=== PATIENT | female | born 1990 | race Caucasian/White ===

== ENCOUNTER 2021-05-11 10:00 | Outpatient (REF) | payer OTHER, SELFPAY ==
[2021-05-11 10:12] LABS: MANUAL DIFF FLAG NO
[2021-05-11 10:39] LABS: Basophils Percent Auto 0.4 % (0-2); Eosinophils Absolute Auto 0.1 X10*3/uL (0.0-0.4); Eosinophils Percent Auto 1.2 % (0-4); Hematocrit 30.4 % (37.0-47.0); Hemoglobin 8.6 g/dl (12.0-16.0); Imm Gran Abs Auto 0.01 X10*3/uL (0.00-0.03); Imm Gran Pct Auto 0.2 % (0.0-0.4); Lymphocytes Absolute Auto 2.1 X10*3/uL (1.2-4.9); Lymphocytes Percent Auto 41.8 % (20-40); Mean Corpuscular HGB Conc 28.3 g/dl (31.0-35.0); Mean Corpuscular Hemoglobin 19.2 pg (27.0-33.0); Mean Platelet Volume 9.7 fL (9.4-12.3); Monocytes Absolute Auto 0.4 X10*3/uL (0.1-1.2); Monocytes Percent Auto 7.8 % (2-11); Neutrophils Absolute Auto 2.4 x10*3/uL (2.0-8.3); Neutrophils Percent Auto 48.6 % (45-73); Platelet Count 290 X10*3/uL (160-400); Red Blood Count 4.47 X10*6/uL (4.20-5.50); Red Cell Distribution Width 18.6 % (11.0-16.0)
[2021-05-11 11:58] LABS: Alanine Aminotransferase 11 U/L (0-31); Albumin Level 3.8 g/dL (3.5-5.0); Alkaline Phosphatase 59 U/L (39-117); Anion Gap 11 (12-20); Aspartate Amino Transferase 13 U/L (5-31); Bilirubin Total 0.5 mg/dL (0.0-1.0); Blood Urea Nitrogen 14 mg/dL (9-16); Calcium 9.4 mg/dL (8.4-10.2); Carbon Dioxide 28 mmol/L (22-29); Chloride 106 mmol/L (96-108); Cholesterol 175 mg/dL; Estimated Glomerular Filt Rate > 60; Glucose Fasting 93 mg/dL (60-99); HDL Cholesterol 43 mg/dL; LDL Cholesterol Calculated 114 mg/dl; Potassium 4.4 mmol/L (3.3-5.1); Sodium 141 mmol/L (135-145); Total Protein 7.2 g/dL (6.5-8.0); Triglycerides 92 mg/dL
[2021-05-11 12:09] LABS: Thyroid Stimulating Hormone 2.11 uIU/mL (0.32-4.0)
== END 2021-05-11 10:01 | disposition home or self-care (01) ==
LOC: HO.LAB 10:00
PROVIDERS: PCP Internal Medicine; Visit Provider Internal Medicine
DX: Z00.00 Encounter for general adult medical examination without abnormal findings (principal); E03.9 Hypothyroidism, unspecified; E11.9 Type 2 diabetes mellitus without complications
CPT/HCPCS: 36415; 80053; 80061; 84443; 85025

== ENCOUNTER → 2021-05-29 13:20 | Outpatient (BNV) | payer OTHER, SELFPAY | PROVIDERS: PCP Internal Medicine; Referring Provider Internal Medicine; Visit Provider Internal Medicine | DX: D50.9 Iron deficiency anemia, unspecified (principal) | CPT/HCPCS: 99203; 99213; 99214 ==

== ENCOUNTER 2021-06-17 08:03 | Outpatient (REF) | payer OTHER, SELFPAY | END 2021-06-17 08:04 | disposition home or self-care (01) | LOC: HO.MDS 08:03 | PROVIDERS: PCP Internal Medicine; Visit Provider Internal Medicine | DX: D50.9 Iron deficiency anemia, unspecified (principal) | CPT/HCPCS: 96365; 96366; J1200; J1750; Q0163 ==

== ENCOUNTER 2021-06-28 10:54 | Outpatient (REF) | payer OTHER, MEDICAID, SELFPAY ==
[2021-06-28 17:22] LABS: CT PCR NOT DETECTED (Not Detect.); NG PCR NOT DETECTED (Not Detect.)
[2021-06-29 13:07] LABS: BV Int Neg Control Negative (Negative); BV Int Pos Control Positive (Positive)
[2021-07-04 04:28] LABS: HPV mRNA E6/E7 rflx Not Detected (Not Detected)
== END 2021-06-28 10:55 | disposition home or self-care (01) ==
LOC: HO.LAB 10:54
PROVIDERS: PCP Internal Medicine; Visit Provider Advanced Practice Midwife
DX: Z01.419 Encounter for gynecological examination (general) (routine) without abnormal findings (principal); Z11.51 Encounter for screening for human papillomavirus (HPV); Z20.2 Contact with and (suspected) exposure to infections with a predominantly sexual mode of transmission
CPT/HCPCS: 87480; 87491; 87510; 87591; 87624; 87660; 88142

== ENCOUNTER 2022-03-22 11:42 | Outpatient (REF) | payer OTHER, MEDICAID, SELFPAY ==
--- NOTE | ~2022-03-22 | XR_ITS ---
EXAMINATION: XR LUMBOSACRAL SPINE CLINICAL INFORMATION: Dorsalgia. COMPARISON: None TECHNIQUE: Three views of the lumbosacral spine. FINDINGS: The alignment, vertebral body and disc height is maintained. Small endplate osteophyte is seen at the superior margin of L4. No evidence of spondylolysis or spondylolisthesis. The sacroiliac joints are unremarkable. XR/XR lumbar spine 2-3V IMPRESSION: Normal alignment. No evidence of spondylolysis or spondylolisthesis. Small endplate osteophyte is seen at the superior margin of L4.
[2022-03-22 14:02] LABS: MANUAL DIFF FLAG NO
[2022-03-22 14:05] LABS: Basophils Percent Auto 0.4 % (0-2); Eosinophils Absolute Auto 0.1 X10*3/uL (0.0-0.4); Eosinophils Percent Auto 2.1 % (0-4); Hematocrit 37.5 % (37.0-47.0); Hemoglobin 12.3 g/dl (12.0-16.0); Imm Gran Abs Auto 0.01 X10*3/uL (0.00-0.03); Imm Gran Pct Auto 0.2 % (0.0-0.4); Lymphocytes Absolute Auto 2.1 X10*3/uL (1.2-4.9); Lymphocytes Percent Auto 42.8 % (20-40); Mean Corpuscular HGB Conc 32.8 g/dl (31.0-35.0); Mean Corpuscular Hemoglobin 26.1 pg (27.0-33.0); Mean Corpuscular Volume 79.4 fL (80.0-98.0); Mean Platelet Volume 10.5 fL (9.4-12.3); Monocytes Absolute Auto 0.5 X10*3/uL (0.1-1.2); Monocytes Percent Auto 9.5 % (2-11); Neutrophils Absolute Auto 2.2 x10*3/uL (2.0-8.3); Platelet Count 262 X10*3/uL (160-400); Red Blood Count 4.72 X10*6/uL (4.20-5.50); Red Cell Distribution Width 13.2 % (11.0-16.0); White Blood Count 4.9 X10*3/uL (4.8-10.8)
[2022-03-22 14:15] LABS: Iron 43 mcg/dL (30-160); Percent Iron Saturation 17 % (15-50); Total Iron Binding Capacity 251 mcg/dL (228-428); Unsaturated Iron Binding 208 ug/dL
== END 2022-03-22 11:43 | disposition home or self-care (01) ==
LOC: HO.HMGCX 11:42
PROVIDERS: PCP Internal Medicine; Visit Provider Internal Medicine
DX: E61.1 Iron deficiency (principal); M54.9 Dorsalgia, unspecified
CPT/HCPCS: 36415; 72100; 83540; 85025

== ENCOUNTER → 2023-02-02 15:02 | Outpatient (BNVA) | payer OTHER, SELFPAY | PROVIDERS: PCP Internal Medicine; Visit Provider Physician Assistant Surgical ==

== ENCOUNTER 2024-03-24 08:43 | Outpatient (AMB) | payer OTHER, SELFPAY ==
[2024-03-24 08:47] VITALS: BP 122/78; BMI 39.8
--- NOTE | 2024-03-24 08:47 | A.OFFVIS_ITS ---
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 Family Development Extension Specialist Required: No Family Development Extension Specialist Services: Family Development Extension Specialist Present Information Interpreted: clinical only Fine Wire Drawer: Fine Wire Drawer Present Allergies latex Allergy (Verified 03/24/24 08:48) Rash acetaminophen [From Tylenol] Adverse Reaction (Mild, Unverified 03/24/24 08:48) Nausea Medication List - Last Reconciled 03/24/24 by Agustina Bolaños CNM No Known Home Meds Is last menstrual period known: Yes Last menstrual period: 03/22/24 HPI HPI CIRCUIT WALKER 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 She has a history of PCOS in very heavy irregular periods she has a history the bleeding being so heavy that in the past some years ago she needed a D&C she also became so anemic a few years ago that she needed iron transfusions. She should be on iron but it makes her constipated so she does not take it. She does try to eat well though she does not eat a lot of need though she does eat chicken in beans. She is open to and has not been contraceptive thing she has a 10-year-old child she did not need reproductive assistance to get for that child but she would like to have another baby. However at this time her periods are so heavy and crampy and painful and difficult that she would like to deal with the heavy periods 1st she is feeling somewhat washed out today and she thinks that she probably is anemic enough to need some assistance with that as well. She thinks her primary care appointment is coming up in a couple of months. She has not had blood work in a little while her last CBC was not in the anemic range but in the past she has been very anemic. At this point she would like to deal with the heavy bleeding as a priority rather than pursue a . She has lots of cancers in her mother's side of the family with grandmothers and they are sisters and other relatives but no close members with breast cancer.. She is aware of the relationship between weight loss and dealing with the fert ility issues related to PCOS. [facility] Medical History Obesity Iron deficiency anemia Surgical History H/O rhinoplasty History of delivery Family History Mother Hypertension History of hysterectomy Father Diabetes Maternal Grandmother Bone marrow disease Maternal Aunt Thyroid cancer Social History Household Members: Spouse, Family and Children Housing: Condominium Are you a primary care mgr to a significant other at home: No Do you presently have visiting nurse or other home services: No Alcohol intake: current Alcohol intake frequency: holidays/special occasions only Patient Tobacco Use Status: Never used Tobacco e-Cigarette/Vaping Use: Never Used Second Hand Smoke Exposure: No service: No Current occupational status: employed Gender identity: Female Cognitive needs: No Hearing needs: No Vision needs: No Female Reproductive History Menstrual Age of Menarche: 11 Duration of menses: 8-10 days Date of last menstrual period: 03/22/24 control method: none Total pregnancies: 1 Full term: 1 Date of last pap smear: 07/02/21 (neg.2018,WNL) History of abnormal pap smear: No Physical Exam Vital Signs: Last Vital Signs BP 122/78 03/24/24 08:47 BMI result Body Mass Index 39.8 Const General: healthy appearing, comfortable, no acute distress, well developed and alert Nutritional Appearance: average body habitus Orientation/consciousness: patient oriented x3 Limitations: no limitations HEENT Head: Yes normocephalic Neck Neck: Yes normal visual inspection Chest Chest palpation & inspection: normal inspection of the chest Breast/axilla inspection: normal inspection of the breasts and normal inspection of the axillae Breast/axilla palpation: normal palpation of the breasts and normal palpation of the axillae Resp Effort & Inspection: normal respiratory effort GI Inspection: Yes normal to inspection, No Abdominal wall edema and No distended Palpation (GI): Soft to palpation and nontender Other: Patient has very heavy menses today she is on day 3 of her menses she has a history of very heavy irregular periods secondary to PCOS. Cervix nulliparous pink smooth with heavy bleeding uterus anteverted nontender does not feel appreciably enlarged adnexa nontender good tone with Kegel General: Yes bladder normal to palpation External Female Exam: normal external appearance and normal appearance of the urethra Speculum Exam - Vagina: normal appearance of the vagina, normal palpation and normal vaginal discharge Speculum Exam - Cervix: normal appearance of the cervix, normal palpation and nontender Bimanual exam- vagina & uterus: normal bimanual exam, normal palpation, uterine size normal, bladder normal to palpation, consistency normal, normal palpation, uterine mobility normal, uterine shape normal, No Cervical tenderness present, non-tender and no cervical motion tenderness Bimanual Exam- Adnexa, other: normal adnexae, no masses, normal and No adnexal tenderness Neuro General: patient oriented x3 Results Reviewed Results Reviewed: Name: Tamanna Simmons Age/Sex: 31/F Attending: Agustina Bolaños CNM : 1990 Submitted by: Agustina Bolaños CNM Copies to: Elliot Simeon MD MR #: [id number] Status: DEP REF Collected: 06/28/21 Location: .LAB Received: 07/02/21 Interpretation Satisfactory for evaluation. Negative for intraepithelial lesion or malignancy. HPV mRNA E6/E7: NOT DETECTED This assay detects E6/E7 viral messenger RNA (mRNA) from 14 high-risk HPV types (16, 18, 31, 33, 35, 39, 45, 51, 52, 56, 58, 59, 66, 68) HPV testing performed by [facility], [place], [place]. See reference laboratory portion of the EMR for entire report. Clinical Information LMP: 05/28/21 Previous PAP test: 2018, WNL Material Received ThinPrep Cervical Copies To Elliot Simeon MD [address] [place] [address] [address] [place] [address] Agustina Bolaños CNM [address] [place] [address] [address] [place] [address] Electronically Signed By: SONU Keita ([facility]) 07/09/21 0844 The Pap Test is a screening procedure with the inherent possibility of both false negative and false positive results. Results should be interpreted in the context of historic and current clinical findings. Reliability of the Pap Test is enhanced by performing the test on a regular repetitive basis. Patient: Tamanna Simmons Age/Sex: 31/F MR#: [id number] Page 1 of 1 Assessment & Plan Assessment & Plan (1) Iron deficiency anemia: Comment: Has needed iron transfusions in past, CBC being checked today, and Hematology referral being placed, anticipating that she is anemic. Code(s): D50.9 - Iron deficiency anemia, unspecified Category: Medical (2) Obesity: Code(s): E66.9 - Obesity, unspecified Category: Medical (3) Well woman exam with routine gynecological exam: Code(s): Z01.419 - Encounter for gynecological examination (general) (routine) without abnormal findings Category: Medical (4) Cervical cancer screening: Comment: 06/28/21 pap= neg, neg hpv Code(s): Z12.4 - Encounter for screening for malignant neoplasm of cervix Category: Medical (5) Potential exposure to STD: Code(s): Z20.2 - Contact with and (suspected) exposure to infections with a predominantly sexual mode of transmission Category: Medical (6) PCOS (polycystic ovarian syndrome): Comment: Long standing history together with irregular heavy menses, see note, workup i nitiated and management discussed Code(s): E28.2 - Polycystic ovarian syndrome Category: Medical (7) Menorrhagia, premenopausal: Code(s): N92.4 - Excessive bleeding in the premenopausal period Category: Medical (8) Abnormal uterine bleeding (AUB): Comment: Labs and ultrasound ordered planning probable endometrial biopsy and possible Mirena Code(s): N93.9 - Abnormal uterine and vaginal bleeding, unspecified Category: Medical (9) History of irregular menstrual bleeding: Code(s): Z87.42 - Personal history of other diseases of the female genital tract Category: Medical Plan 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 She has a history of PCOS in very heavy irregular periods she has a history the bleeding being so heavy that in the past some years ago she needed a D&C she also became so anemic a few years ago that she needed iron transfusions. She should be on iron but it makes her constipated so she does not take it. She does try to eat well though she does not eat a lot of need though she does eat chicken in beans. She is open to and has not been contraceptive thing she has a 10-year-old child she did not need reproductive assistance to get for that child but she would like to have another baby. However at this time her periods are so heavy and crampy and painful and difficult that she would like to deal with the heavy periods 1st she is feeling somewhat washed out today and she thinks that she probably is anemic enough to need some assistance with that as well. She thinks her primary care appointment is coming up in a couple of months. She has not had blood work in a little while her last CBC was not in the anemic range but in the past she has been very anemic. At this point she would like to deal with the heavy bleeding as a priority rather than pursue a . Discussed all of the above she is well aware of the issues involved with PCOS she would need all of her fasting blood work via her primary care provider but since I am going to be drawing some labs I added fasting glucose and thyroid level and CBC she appears pale to this practitioners eyes and her bleeding is heavy and I would not be surprised if she were anemic enough to require some intervention such as iron transfusions so I am also placing her referral to Hematology.. For the heavy bleeding I am ordering a pelvic ultrasound as well as the CBC and TSH. We will plan on possibly an endometrial biopsy if necessary after the ultrasound is done and I have already discussed the possible use of a Mirena help to help control the bleeding. She has been sexually active and I have asked her to refrain from unprotected intercourse from now or on so that a non diagnosed would not coexist along with the evaluation process. The patient agrees with the plan and did not have any further questions she feels at this point the bleeding is so heavy and crampy in her periods are lasting so long sometimes 10 days sometimes longer in the longest she has had is 2-3 weeks that she would rather deal with bleeding issues rather than pursue a at this particular moment in time discussed that decisions about getting the bleeding patterns under control involve hormonal treatments. She had a ParaGard IUD in the past before the with her 10-year-old child and it was very painful to her so she has been somewhat reluctant to consider an IUD which was discussed in the past. However I did explain that it is 1 of the preferred ways of managing the dysfunctional bleeding pattern especially when anemic conditions are present. Also discussed that it really should not be painful unless it is not sitting in the best position discussed that the insertion procedure is a blind procedure so trying again a Mirena IU S maybe a worthwhile proposition. Alternative direction of management was discussed including referring to reproductive endocrinology but she wants to do with the heavy bleeding 1st. Discussed that this might present an opportunity to work on weight loss and getting healthier while we address the heavy bleeding and then in the future she could pursue her other goals with reproduction. Orders: Orders Complete Blood Count no Diff Today N93.9 - Abnormal uterine and vaginal bleeding, unspecified Bacterial Vaginosis Panel Today N89.8 - Other specified noninflammatory disorders of vagina TSH reflex Free T4 Today N93.9 - Abnormal uterine and vaginal bleeding, unspecified Glucose Fasting Today D50.9 - Iron deficiency anemia, unspecified, E28.2 - Polycystic ovarian syndrome, E66.9 - Obesity, unspecified, N92.4 - Excessive bleeding in the premenopausal period, N93.9 - Abnormal uterine and vaginal bleeding, unspecified, Z01.419 - Encounter for gynecological examination (general) (routine) without abnormal findings, Z12.4 - Encounter for screening for malignant neoplasm of cervix, Z20.2 - Contact with and (suspected) exposure to infections with a predominantly sexual mode of transmission, Z87.42 - Personal history of other diseases of the female genital tract US pelvic and transvaginal Today D50.9 - Iron deficiency anemia, unspecified, E28.2 - Polycystic ovarian syndrome, E66.9 - Obesity, unspecified, N92.4 - Excessive bleeding in the premenopausal period, N93.9 - Abnormal uterine and vaginal bleeding, unspecified, Z87.42 - Personal history of other diseases of the female genital tract CT NG by PCR Today N89.8 - Other specified noninflammatory disorders of vagina Referrals Hematology & Oncology Referral D50.9 - Iron deficiency anemia, unspecified, N92.4 - Excessive bleeding in the premenopausal period, N93.9 - Abnormal uterine and vaginal bleeding, unspecified, Z87.42 - Personal history of other diseases of the female genital tract Coding Level of Care Code Est Pt Prev Care 18-39y([id number]) Diagnoses Iron deficiency anemia D50.9 Obesity E66.9 Well woman exam with routine gynecological exam Z01.419 Cervical cancer screening Z12.4 Potential exposure to STD Z20.2 PCOS (polycystic ovarian syndrome) E28.2 Menorrhagia, premenopausal N92.4 Abnormal uterine bleeding (AUB) N93.9 History of irregular menstrual bleeding Z87.42
== END 2024-03-24 10:25 | disposition home or self-care (01) ==
LOC: HO.HWSM 08:43
PROVIDERS: PCP Internal Medicine; Visit Provider Advanced Practice Midwife
DX: Z01.419 Encounter for gynecological examination (general) (routine) without abnormal findings (principal); D50.9 Iron deficiency anemia, unspecified; E66.9 Obesity, unspecified; Z20.2 Contact with and (suspected) exposure to infections with a predominantly sexual mode of transmission; E28.2 Polycystic ovarian syndrome; N92.4 Excessive bleeding in the premenopausal period; N93.9 Abnormal uterine and vaginal bleeding, unspecified; Z87.42 Personal history of other diseases of the female genital tract
CPT/HCPCS: 99395; 99459

== ENCOUNTER 2024-03-24 08:43 | Outpatient (REF) | payer OTHER, SELFPAY ==
[2024-03-25 02:27] LABS: CT PCR NOT DETECTED (Not Detect.); NG PCR NOT DETECTED (Not Detect.)
[2024-03-25 08:42] LABS: Bacterial Vaginosis PCR NEGATIVE (Negative); Candida Group PCR NOT DETECTED (Not Detect); Candida glab krusei PCR NOT DETECTED (Not Detect); Trichomonas vaginalis PCR NOT DETECTED (Not Detect)
== END 2024-03-24 08:44 | disposition home or self-care (01) ==
LOC: HO.LAB 08:43
PROVIDERS: PCP Internal Medicine; Visit Provider Advanced Practice Midwife
DX: N89.8 Other specified noninflammatory disorders of vagina (principal)
CPT/HCPCS: 81515; 87491; 87591

== ENCOUNTER 2024-03-26 11:58 | Inpatient (IN) | payer OTHER, SELFPAY ==
[2024-03-26] VITALS (14 sets, daily range): BP systolic 102–128; BP diastolic 55–79; PULSE 70–99; RESP 16–20; TEMP 36.4–37.1; O2SAT 98–100; BMI 39.5
--- NOTE | ~2024-03-26 | US_ITS ---
CLINICAL HISTORY: dyfunctional bleeding, critically anemic, fibroid? US pelvis transabdominal and transvaginal Comparison: None Findings: Transabdominal imaging was performed for overall anatomy. Transvaginal imaging was performed for additional detail. The anteverted uterus measures 8.3 cm in length on transabdominal imaging and 7.9 cm in length on transvaginal imaging. The endometrial stripe measures 5.2 mm in thickness on transvaginal imaging a trace amount fluid within the endometrial canal. Flow present over the endometrium on color Doppler imaging. Right ovary measures 3.0 x 2.9 x 1.7 cm. Left ovary measures 3.3 x 2.2 x 2.6 cm. Flow present at the left ovary on color Doppler imaging. No clear flow demonstrated at the right ovary on the provided sonographic images. Trace free fluid visualized within the pelvis. IMPRESSION: 1. Trace fluid identified within the endometrial canal with areas of endometrial flow on color Doppler imaging.. The flow is nonspecific, but may be seen in the setting of an underlying polyp, mass, or endometrial hyperplasia. No significant endometrial thickening appreciated on this exam. Recommend sonohysterogram examination or contrast-enhanced pelvic MRI for further evaluation. 2. Unremarkable sonographic evaluation of the left ovary. There are limited Doppler images of the right ovary on this examination, and right ovarian torsion is not excluded on this exam. May consider repeat examination with color and spectral Doppler imaging of the ovaries for further evaluation as clinically directed. This document has been electronically signed by: Brodie Lopez MD on 03/26/2024 20:24:47
--- NOTE | 2024-03-26 12:24 | ED.GENADULT ---
HPI - General Adult General Chief complaint: General Medical Stated complaint: abnormal labs Time Seen by Provider: 03/26/24 15:58 Source: patient Limitations: no limitations History of Present Illness ED Provider: Radha Burgos PA-C HPI narrative: 34-year-old female with a history of dysfunctional uterine bleeding, PCOS, obesity, chronic iron deficiency anemia, presents with abnormal labs. Patient is currently seeing a station air traffic control specialist in Dr. Gaona's practice, for dysfunctional uterine bleeding; she has an TVUS and a uterine biopsy pending. Patient was found to be critically anemic with a hemoglobin of 5.9, she was sent in as an expect by Dr. Gaona. Associated weakness, fatigue and shortness of breath with minimal activity. Patient states she essentially we will have a period 3 weeks out of a month, she has a brief reprieve of 5-7 days without bleeding. Patient currently has her period, however the bleeding is not heavy at this time. Related Data Home Medications ?Medication ?Instructions ?Recorded ?Confirmed No Known Home Meds 03/24/24 03/24/24 Allergies Allergy/AdvReac Type Severity Reaction Status Date / Time latex Allergy Rash Verified 03/26/24 12:25 acetaminophen [From Tylenol] AdvReac Mild Nausea Verified 03/26/24 12:25 Review of Systems Review of Systems: Yes all other systems are reviewed and are negative Constitutional: Constitutional: Reports fatigue, Denies fever(s) and Reports lethargy Cardiovascular: Cardiovascular: Denies chest pain and Reports dyspnea on exertion Respiratory: Respiratory: Denies cough and Reports dyspnea on exertion Gastrointestinal: Gastrointestinal: Denies abdominal pain Genitourinary: Genitourinary: Reports menorrhagia Endocrine: Endocrine: Reports fatigue PMFSH Past Medical History Attestation statement: The following information was validated with the patient. Medical History Obesity Iron deficiency anemia Surgical History H/O rhinoplasty History of delivery Family History Family History Mother Hypertension History of hysterectomy Father Diabetes Maternal Grandmother Bone marrow disease Maternal Aunt Thyroid cancer Social History Social History Household Members: Spouse, Family and Children Housing: Condominium Are you a primary home health care respiratory therapist to a significant other at home: No Do you presently have visiting nurse or other home services: No Alcohol intake: current Alcohol intake frequency: holidays/special occasions only Patient Tobacco Use Status: Never used Tobacco Smoked in Last 30 Days: No e-Cigarette/Vaping Use: Never Used Second Hand Smoke Exposure: No Use of substances other than those prescribed or required for medical reasons: No Advance Directives: No Advance Directives Information Provided: No Do you have a plan to hurt others: No Plan Patient : No service: No Current occupational status: employed Gender identity: Female Cognitive needs: No Hearing needs: No Vision needs: No Physical Exam ED Vital Signs: Vital Signs - 24 hr 03/26/24 12:24 03/26/24 16:09 03/26/24 17:12 Temperature 98 F 97.9 F Pulse Rate 70 88 86 Respiratory Rate 19 18 18 Blood Pressure 125/55 L 127/79 109/65 Pulse Oximetry 100 98 98 Oxygen Delivery Method Room Air Room Air Room Air 03/26/24 17:25 03/26/24 17:43 Temperature 98.5 F 98.3 F Pulse Rate 99 81 Respiratory Rate 16 16 Blood Pressure 114/71 111/68 Pulse Oximetry Oxygen Delivery Method BMI result Body Mass Index 39.5 Const Other: Alert, overall well in appearance Orientation/consciousness: patient oriented x3 Resp Other: Nonlabored respiration Cardio Other: Normal peripheral perfusion GI Other: Abdomen is soft, nondistended nontender Other: Scant amount of blood in vaginal canal, no pulsatile bleeding per os. I am visualizing a cylindrical lesion protruding from the cervical os, it appears to be tissue, no CMT no adnexal tenderness Skin Other: Warm dry no rash Neuro General: patient oriented x3, gait normal, no focal motor deficits and CN's II-XI intact bilaterally Psych Other: Calm cooperative Course Course Course Narrative: This is a Rapid Medical Examination (RME) performed by Laurie Retana PA-C in triage. Full HPI, ROS, assessment and treatment plan per primary provider in the Main ED. 34 yo female hx of iron deficiency anemia, PCOS, AUB here for eval of low H&H levels. had blood work this morning, H&H 5.5/22.7. reports feeling tired/ sob at baseline. hx of iron infusions. no hx of blood transfusions. +pale Plan: basic labs, type and screen Reevaluation(s) Reevaluation #1: I message Dr. Gaona, he agrees with the ultrasound, he is asking for a pelvic exam as well as cultures, in chart review I did not realize the patient just had vaginal swabs obtained on the 9th. The patient will be admitted due to her critical anemia, I will reach back out to doctor Candelaria for further consult once the transvaginal ultrasound results. Time: 18:12 Consultations Consultation #1: I message Dr. Gaona, he agrees with the ultrasound, he is asking for a pelvic exam as well as cultures, in chart review I did not realize the patient just had vaginal swabs obtained on the 9th. The patient will be admitted due to her critical anemia, I will reach back out to doctor Candelaria for further consult once the transvaginal ultrasound results. Time: 18:12 Consultation #2: Dr. Gaona assessed the patient in the ED as well and performed a pelvic, he feels the cylindric lesion that I found on the cervix is a polyp, it could be the source of the bleeding. Sounds as if the patient will follow up as an outpatient from a gynecological perspective, she is still being admitted due to her critical anemia Medications Administered Generic Name Dose Route Start Last Admin Trade Name Freq PRN Reason Stop Dose Admin Progesterone 200 mg 03/26/24 21:00 03/26/24 20:41 Progesterone, Micronized 100 Mg Capsule PO 200 mg BEDTIME SHERMAN Administration Medical Decision Making Medical Decision Making MDM Narrative: 34-year-old female with a history of dysfunctional uterine bleeding, PCOS, obesity, chronic iron deficiency anemia, presents with abnormal labs. Patient is currently seeing a station air traffic control specialist in Dr. Gaona's practice, for dysfunctional uterine bleeding; she has an TVUS and a uterine biopsy pending. Patient was found to be critically anemic with a hemoglobin of 5.9, she was sent in as an expect by Dr. Gaona. Associated weakness, fatigue and shortness of breath with minimal activity. Patient states she essentially we will have a period 3 weeks out of a month, she has a brief reprieve of 5-7 days without bleeding. Patient currently has her period, however the bleeding is not heavy at this time. Problem: Dysfunctional uterine bleeding, iron deficiency anemia, PCOS, obesity History: Per patient I have considered the following differential diagnoses: Ectopic, fibroid, endometrial cancer, endometriosis, dyssynchronous endometrium Plan: Patient has begun assessment for her dysfunctional uterine bleeding, she has multiple diagnostic testing pending as an outpatient. Screening labs including type and screen have been ordered, a serum test has not been obtained. We will do so now. I am inclined to order a transvaginal ultrasound, I will reach out to Dr. Gaona as well. I think ectopic is least likely given the patient has been having symptoms for months. I have independently reviewed the following tests: Labs: No leukocytosis, H and H are 5.9 and 22.2 respectively, no electrolyte abnormality, beta hCG less than 2, patient screened negative for GC, chlamydia, trich, BV, Dalia on March 24 2024 Transvaginal ultrasound:IMPRESSION: 1. Trace fluid identified within the endometrial canal with areas of endometrial flow on color Doppler imaging.. The flow is nonspecific, but may be seen in the setting of an underlying polyp, mass, or endometrial hyperplasia. No significant endometrial thickening appreciated on this exam. Recommend sonohysterogram examination or contrast-enhanced pelvic MRI for further evaluation. 2. Unremarkable sonographic evaluation of the left ovary. There are limited Doppler images of the right ovary on this examination, and right ovarian torsion is not excluded on this exam. May consider repeat examination with color and spectral Doppler imaging of the ovaries for further evaluation as clinically directed. This document has been electronically signed by: Brodie Lopez MD on 03/26/2024 20:24:47 Lab Data 03/26/24 12:37 03/26/24 12:37 Labs: Lab Results 03/26/24 Range/Units 12:37 WBC 5.8 (4.8-10.8) X10*3/uL RBC 3.64 L (4.20-5.50) X10*6/uL Hgb 5.9 L* (12.0-16.0) g/dl Hct 22.2 L (37.0-47.0) % MCV 61.0 L (80.0-98.0) fL MCH 16.2 L (27.0-33.0) pg MCHC 26.6 L (31.0-35.0) g/dl RDW 22.4 H (11.0-16.0) % Plt Count 369 (160-400) X10*3/uL MPV 9.1 L (9.4-12.3) fL Immature Gran % (Auto) 0.3 (0.0-0.4) % Neut % (Auto) 50.4 (45-73) % Lymph % (Auto) 41.7 H (20-40) % [place] % (Auto) 5.9 (2-11) % Eos % (Auto) 1.4 (0-4) % Baso % (Auto) 0.3 (0-2) % Lymph # (Auto) 2.4 (1.2-4.9) X10*3/uL [place] # (Auto) 0.3 (0.1-1.2) X10*3/uL Eos # (Auto) 0.1 (0.0-0.4) X10*3/uL Baso # (Auto) 0.0 (0.0-0.2) X10*3/uL Abs Immat Gran (auto) 0.02 (0.00-0.03) X10*3/uL Absolute Neuts (auto) 2.9 (2.0-8.3) x10*3/uL Absolute Nucleated RBC 0.020 H (0.0-0.012) X10*3/uL Nucleated RBC % (auto) 0.3 H (0.0-0.2) /100WBC Sodium 140 (135-145) mmol/L Potassium 3.6 (3.3-5.1) mmol/L Chloride 111 H (96-108) mmol/L Carbon Dioxide 25 (22-29) mmol/L Anion Gap 8 L (12-20) BUN 12 (9-16) mg/dL Creatinine 0.70 (0.5-1.4) mg/dL Estim Creat Clear Calc 130.7 Estimated GFR > 60 Random Glucose 111 (60-115) mg/dL Calcium 8.6 D (8.4-10.2) mg/dL Iron 14 L (30-160) mcg/dL TIBC 310 (228-428) mcg/dL % Saturation 5 L (15-50) % Unsat Iron Binding 296 ug/dL Total Bilirubin 0.3 (0.0-1.0) mg/dL AST 14 (5-31) U/L ALT 9 (0-31) U/L Alkaline Phosphatase 57 (39-117) U/L Total Protein 7.0 (6.5-8.0) g/dL Albumin 3.6 (3.5-5.0) g/dL Beta HCG, Quant < 2 mIU/mL Blood Type B Positive Antibody Screen NEGATIVE Crossmatch See Detail Discharge Plan Discharge Clinical Impression: DUB (dysfunctional uterine bleeding), Iron deficiency anemia Patient Disposition: Admitted As Inpatient
[2024-03-26 12:41] LABS: MANUAL DIFF FLAG NO
[2024-03-26 12:43] LABS: Basophils Percent Auto 0.3 % (0-2); Eosinophils Absolute Auto 0.1 X10*3/uL (0.0-0.4); Eosinophils Percent Auto 1.4 % (0-4); Hematocrit 22.2 % (37.0-47.0); Imm Gran Abs Auto 0.02 X10*3/uL (0.00-0.03); Imm Gran Pct Auto 0.3 % (0.0-0.4); Lymphocytes Absolute Auto 2.4 X10*3/uL (1.2-4.9); Lymphocytes Percent Auto 41.7 % (20-40); Mean Corpuscular HGB Conc 26.6 g/dl (31.0-35.0); Mean Corpuscular Hemoglobin 16.2 pg (27.0-33.0); Mean Platelet Volume 9.1 fL (9.4-12.3); Monocytes Absolute Auto 0.3 X10*3/uL (0.1-1.2); Monocytes Percent Auto 5.9 % (2-11); NRBC Pct Auto 0.3 /100WBC (0.0-0.2); Neutrophils Absolute Auto 2.9 x10*3/uL (2.0-8.3); Neutrophils Percent Auto 50.4 % (45-73); Platelet Count 369 X10*3/uL (160-400); Red Blood Count 3.64 X10*6/uL (4.20-5.50); Red Cell Distribution Width 22.4 % (11.0-16.0); White Blood Count 5.8 X10*3/uL (4.8-10.8)
[2024-03-26 12:48] LABS: Hemoglobin 5.9 g/dl (12.0-16.0)
[2024-03-26 12:58] LABS: Alanine Aminotransferase 9 U/L (0-31); Albumin Level 3.6 g/dL (3.5-5.0); Alkaline Phosphatase 57 U/L (39-117); Anion Gap 8 (12-20); Aspartate Amino Transferase 14 U/L (5-31); Bilirubin Total 0.3 mg/dL (0.0-1.0); Blood Urea Nitrogen 12 mg/dL (9-16); Calcium 8.6 mg/dL (8.4-10.2); Carbon Dioxide 25 mmol/L (22-29); Chloride 111 mmol/L (96-108); Creatinine Clr Calc Pharmacy 130.7; Estimated Glomerular Filt Rate > 60; Glucose Random 111 mg/dL (60-115); Potassium 3.6 mmol/L (3.3-5.1); Sodium 140 mmol/L (135-145)
--- NOTE | 2024-03-26 16:15 | PC.NURSE ---
Pt comes to ED today reporting low Hgb. A&Ox3, VSS, afebrile. Skin is warm and dry Breaths and speech are unlabored Facial symmetry noted. Pt denies n/v, fever, chills Pt reports generally feeling cold but that is a baseline for her. Awaiting orders.
--- NOTE | 2024-03-26 17:36 | PC.NURSE ---
Blood transfusion begins. RN at bedside x15 mins per protocol. Pt tolerating well.
--- NOTE | 2024-03-26 18:21 | PM.IMHP ---
History of Present Illness Date of Service: 03/26/24 Attending physician on admission: Leslie Euceda Chief Complaint: Anemia, menorrhagia Pt is a 34-year-old female with a PMH significant for?PCOS, dysfunctional uterine bleeding, and iron deficiency anemia who presents to the ED after outpatient labs found critical anemia?of 5.8/22.7. Pt had routine [employer] appointment earlier in the week and had outpatient labs drawn earlier this morning. Pt was called by office who told her to come to the ED for transfusion and further workup and evaluation. Pt has a long history of irregular and heavy menses that has required iron transfusions in the past. Pt previously on oral iron supplementation but has not been able to tolerate due to side effects of constipation and abdominal discomfort. Pt reports she normally has 5-10 days of heavy bleeding during each cycle, though reports ?always? has a least a little bleeding daily. Most recent cycle started 7 days ago and ended yesterday. Pt with chronic lightheadedness, dizziness, shortness for breath, and fatigue especially with exertion. Also experiences intermittent heavy cramps and back pain during menses. Reports current symptoms are chronic and at baseline, no worse than prior cycles. In the ED pt's vitals stable and largely WNL. Labs were significant for microcytic anemia of 5.9/22.2 with MCV 61.0, otherwise grossly unremarkable. No leukocytosis. No significant electrolyte abnormalities. Renal function WNL. Hepatic function WNL. In the ED pt was transfused 2 units PRBCs. Pt will be admitted to the hospital for treatment and further evaluation of acute on chronic blood loss anemia secondary to abnormal uterine bleeding requiring blood transfusion. Review of Systems Review of Systems: Negative except for that which is stated in the [facility] Medical History Obesity Iron deficiency anemia Family History Mother Hypertension History of hysterectomy Father Diabetes Maternal Grandmother Bone marrow disease Maternal Aunt Thyroid cancer Surgical History H/O rhinoplasty History of delivery Social History Household Members: Spouse, Family and Children Housing: Condominium Are you a primary care analyst to a significant other at home: No Do you presently have visiting nurse or other home services: No Alcohol intake: current Alcohol intake frequency: holidays/special occasions only Patient Tobacco Use Status: Never used Tobacco Smoked in Last 30 Days: No e-Cigarette/Vaping Use: Never Used Second Hand Smoke Exposure: No Use of substances other than those prescribed or required for medical reasons: No Advance Directives: No Advance Directives Information Provided: No Do you have a plan to hurt others: No Plan Patient : No service: No Current occupational status: employed Gender identity: Female Cognitive needs: No Hearing needs: No Vision needs: No Meds Allergies Allergy/AdvReac Type Severity Reaction Status Date / Time latex Allergy Rash Verified 03/26/24 12:25 acetaminophen [From Tylenol] AdvReac Mild Nausea Verified 03/26/24 12:25 Home Medications ?Medication ?Instructions ?Recorded ?Confirmed ?Last Taken ?Type No Known Home Meds 03/24/24 03/24/24 Unknown History Physical Exam Vital Signs and Narrative: Vital Signs: Last Vital Signs Temp 98.3 F 03/26/24 17:43 Pulse 81 03/26/24 17:43 Resp 16 03/26/24 17:43 BP 111/68 03/26/24 17:43 Pulse Ox 98 03/26/24 17:12 O2 Del Method Room Air 03/26/24 17:12 BMI result Body Mass Index 39.5 General: AOx3, no acute distress Resp: CTA bilaterally CVS: S1, S2, RRR GI: +BS, NT, no distention Skin: Warm, dry Neuro: Cranial nerves II-XII grossly intact bilaterally. Motor grossly intact bilaterally : Pelvic exam deferred to ED provider and [employer] Extremities: No edema Psych: Appropriate affect Results Labs 03/26/24 12:37 03/26/24 12:37 Labs: Laboratory Results - last 24 hr 03/26/24 12:37 MCV 61.0 L MCH 16.2 L MCHC 26.6 L RDW 22.4 H Plt Count 369 MPV 9.1 L Immature Gran % (Auto) 0.3 Neut % (Auto) 50.4 Lymph % (Auto) 41.7 H [place] % (Auto) 5.9 Eos % (Auto) 1.4 Baso % (Auto) 0.3 Lymph # (Auto) 2.4 [place] # (Auto) 0.3 Eos # (Auto) 0.1 Baso # (Auto) 0.0 Abs Immat Gran (auto) 0.02 Absolute Neuts (auto) 2.9 Absolute Nucleated RBC 0.020 H Nucleated RBC % (auto) 0.3 H Anion Gap 8 L Estim Creat Clear Calc 130.7 Estimated GFR > 60 Random Glucose 111 Calcium 8.6 D Total Bilirubin 0.3 AST 14 ALT 9 Alkaline Phosphatase 57 Total Protein 7.0 Albumin 3.6 Blood Type B Positive Antibody Screen NEGATIVE Crossmatch See Detail Assessment and Plan (1) Acute on chronic anemia: Status: Acute (2) Menorrhagia, premenopausal: Status: Acute Plan Pt is a 34-year-old female with a PMH significant for?PCOS, dysfunctional uterine bleeding, and iron deficiency anemia who presents to the ED after outpatient labs found critical anemia?of 5.8/22.7. Pt will be admitted to the hospital for treatment and further evaluation of acute on chronic blood loss anemia secondary to abnormal uterine bleeding requiring blood transfusion. Acute on chronic blood loss anemia Patient's H&H 5.9/22.2 Secondary to abnormal uterine bleeding Pt with long history of AUB requiring iron transfusions in the past Not compliant with home iron supplementation Pt transfused 2 units PRBCs in the ED Transvaginal ultrasound [employer] consult Check iron studies Follow CBC Full Code Attending:?Dr. Noel DVT Prophylaxis: Pneumatic compression due to acute anemia Pt will require a hospitalization of at least two nights for treatment of?acute on chronic blood loss anemia secondary to abnormal uterine bleeding requiring blood transfusion. Pt will require hospital care for additional workup, close monitoring of CBC, and transfusion as warranted. Quality Stroke Does the patient have a stroke diagnosis?: No VTE Prior VTE?: No VTE Risk Level:: Medical - moderate - high VTE Device Contraindication: N/A - Device Ordered VTE Drug Contraindication: Treatment Not Indicated
--- NOTE | 2024-03-26 18:22 | P.CONOB_ITS ---
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 LMP last week since then the patient has been bleeding, the patient changes 3 pads per day according to her, today her bleeding was slowed down markedly. Complaining of fatigue and weakness especially on exertion, no other associated symptoms cc:: CC: OB [facility] Past Medical History Medical History Obesity Iron deficiency anemia Family History Family History Mother Hypertension History of hysterectomy Father Diabetes Maternal Grandmother Bone marrow disease Maternal Aunt Thyroid cancer Surgical History Surgical History H/O rhinoplasty History of delivery Social History Social History Household Members: Spouse, Family and Children [facility] Are you a primary youth career specialist to a significant other at home: No Do you presently have visiting nurse or other home services: No Alcohol intake: current Alcohol intake frequency: holidays/special occasions only Patient Tobacco Use Status: Never used Tobacco Smoked in Last 30 Days: No e-Cigarette/Vaping Use: Never Used Second Hand Smoke Exposure: No Use of substances other than those prescribed or required for medical reasons: No Advance Directives: No Advance Directives Information Provided: No Do you have a plan to hurt others: No Plan Patient : No service: No Current occupational status: employed Gender identity: Female Cognitive needs: No Hearing needs: No Vision needs: No Meds Allergies Allergy/AdvReac Type Severity Reaction Status Date / Time latex Allergy Rash Verified 03/26/24 12:25 acetaminophen [From Tylenol] AdvReac Mild Nausea Verified 03/26/24 12:25 Home Medications ?Medication ?Instructions ?Recorded ?Confirmed ?Last Taken ?Type No Known Home Meds 03/24/24 03/24/24 Unknown History 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 Physical Exam Vitals Vital signs: Temp Pulse Resp BP Pulse Ox O2 Del Method 98.3 F 81 16 111/68 98 Room Air 03/26/24 17:43 03/26/24 17:43 03/26/24 17:43 03/26/24 17:43 03/26/24 17:12 03/26/24 17:12 BMI result Body Mass Index 39.5 Female Genitalia (Pelvic) Vulva: No lesions Vagina: Nontender Cervix: Polyp (endocervical polyp) Uterus: Normal size Adnexa/Parametria: Adnexal Tenderness: None, Adnexal Mass: None, Parametrial Tenderness: None and Parametrial Mass: None Additional Comments: minimal vaginal bleeding 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 - Results Labs 03/26/24 12:37 03/26/24 12:37 Labs: Short CBC 03/26/24 Range/Units 12:37 WBC 5.8 (4.8-10.8) X10*3/uL Hgb 5.9 L* (12.0-16.0) g/dl Hct 22.2 L (37.0-47.0) % Plt Count 369 (160-400) X10*3/uL BMP 03/26/24 12:37 Sodium 140 Potassium 3.6 Chloride 111 H Carbon Dioxide 25 BUN 12 Creatinine 0.70 Calcium 8.6 D Liver Function 03/26/24 Range/Units 12:37 Total Bilirubin 0.3 (0.0-1.0) mg/dL AST 14 (5-31) U/L ALT 9 (0-31) U/L Alkaline Phosphatase 57 (39-117) U/L Albumin 3.6 (3.5-5.0) g/dL Antibody Screen Antibody Screen NEGATIVE 03/26/24 12:37 Assessment and Plan (1) Abnormal uterine bleeding (AUB): Status: Acute GC and chlamydia with BV panel and Trichomonas were done 2 days ago and were negative. Discussed with the patient the different causes of abnormal bleeding including thyroid disorders, uterine and ovarian pathology, endometrial hyperplasia, carcinoma and other potential causes. In addition discussed with the patient the finding on ultrasound showing abnormal endometrium with possible endometrial pathology including endometrial polyp , hyperplasia or malignancy, in addition, explained to the patient the finding on physical exam showing endometrial polyp. Discussed with the patient the work up including endometrial sampling either via office EMB with polypectomy or through a hysteroscopy D&C polypectomy to rule out endometrial pathology including endometrial hyperplasia and/or malignancy or a polyp. All pros and cons, risks and benefits were discussed with the patient, the patient decided proceed with hysteroscopy D&C possible polypectomy/myomectomy. Instructions given the patient to call the office for a close follow-up schedule preop visit. Will start the patient on Prometrium 200 mg p.o. q.d. while the patient is getting transfused with packed RBC then after discharge will follow-up with the patient in the outpatient office soon for hysteroscopy D&C polypectomy with posible levo norgestrel IUD insertion and will discontinue Prometrium afterwards (2) Anemia: Status: Acute The patient is being admitted to the hospitalist service for blood transfusion , will defer the management the hospitalist team (3) Endocervical polyp: Status: Acute Explained to the patient the finding on pelvic exam showing endometrial polyp, recommended outpatient polypectomy with endometrial biopsy or hysteroscopy D&C possible polypectomy. All pros and cons, risks and benefits of each approach were discussed with the patient, the patient decided to proceed with hysteroscopy D&C / polypectomy. Instructions given the patient to schedule an outpatient close follow-up for a preop visit in order to schedule the procedure. All questions answered, the patient verbalized understanding
[2024-03-26 18:50] LABS: HCG Quantitative < 2 mIU/mL
[2024-03-26 19:03] LABS: Iron 14 mcg/dL (30-160); Percent Iron Saturation 5 % (15-50); Total Iron Binding Capacity 310 mcg/dL (228-428); Unsaturated Iron Binding 296 ug/dL
[2024-03-26] MEDS: proGESTerone, Micronized 100 MG CAPSULE 200 MG PO (20:41)
[2024-03-27 02:27] VITALS: BP 104/50; PULSE 78; RESP 14; TEMP 36.6; O2SAT 98
[2024-03-27 06:24] LABS: Hematocrit 27.6 % (37.0-47.0); Hemoglobin 7.9 g/dl (12.0-16.0); Mean Corpuscular HGB Conc 28.6 g/dl (31.0-35.0); Mean Corpuscular Hemoglobin 19.4 pg (27.0-33.0); Mean Corpuscular Volume 67.6 fL (80.0-98.0); Mean Platelet Volume 9.6 fL (9.4-12.3); NRBC Pct Auto 0.3 /100WBC (0.0-0.2); Platelet Count 333 X10*3/uL (160-400); Red Blood Count 4.08 X10*6/uL (4.20-5.50); Red Cell Distribution Width 28.7 % (11.0-16.0); White Blood Count 6.4 X10*3/uL (4.8-10.8)
[2024-03-27 06:44] VITALS: BP 96/57; PULSE 60; RESP 14; TEMP 36.5; O2SAT 99
[2024-03-27] MEDS: 0.9 % Sodium Chloride Flush 3 ML SYRINGE IVFLUSH (08:05)
--- NOTE | 2024-03-27 08:27 | PC.NURSE ---
Assumed care of pt at 0700, alert and oriented. Tolerating PO, OOB ambulating to bathroom. 20g Left AC IV intact and patient.
[2024-03-27] MEDS: Iron Sucrose Complex 200 MG/10 ML VIAL IVPUSH (09:03)
--- NOTE | 2024-03-27 10:53 | PHA.MEDREC ---
Addendum entered by Rosa Elena Combs [facility] 03/27/24 10:54: messaged [facility] rec complete Original Note: Pharmacy Consult ? Medication Reconciliation Pharmacy has completed the medication reconciliation.
[2024-03-27 11:29] VITALS: BP 121/76; PULSE 76; RESP 18; TEMP 37.1; O2SAT 100
--- NOTE | 2024-03-27 11:54 | PM.DS ---
DS: Providers Provider Date of Service: 03/27/24 Date of admission: 03/26/24 18:40 Date of discharge: 03/27/24 Primary care physician: Elliot Simeon MD Consults: 03/26/24 18:40 Consult to Obstetrics / Gynecology Routine Consulting Provider: Ghanshyam Gaona Reason for consultation: Acute anemia, menorrhagia, AUB DS: Diagnosis Discharge Diagnosis (1) Acute on chronic anemia: Status: Acute (2) Menorrhagia, premenopausal: Status: Acute (3) Iron deficiency anemia: Status: Chronic (4) Abnormal uterine bleeding (AUB): Status: Acute DS: Summary Hospital Course Hospital Course: From the history and physical by the admitting hospitalist, FARHAN Espinoza, 03/26/24: Pt is a 34-year-old female with a PMH significant for?PCOS, dysfunctional uterine bleeding, and iron deficiency anemia who presents to the ED after outpatient labs found critical anemia?of 5.8/22.7. Pt had routine SENIOR MICROSOFT CONSULTANT appointment earlier in the week and had outpatient labs drawn earlier this morning. Pt was called by office who told her to come to the ED for transfusion and further workup and evaluation. Pt has a long history of irregular and heavy menses that has required iron transfusions in the past. Pt previously on oral iron supplementation but has not been able to tolerate due to side effects of constipation and abdominal discomfort. Pt reports she normally has 5-10 days of heavy bleeding during each cycle, though reports ?always? has a least a little bleeding daily. Most recent cycle started 7 days ago and ended yesterday. Pt with chronic lightheadedness, dizziness, shortness for breath, and fatigue especially with exertion. Also experiences intermittent heavy cramps and back pain during menses. Reports current symptoms are chronic and at baseline, no worse than prior cycles. In the ED pt's vitals stable and largely WNL. Labs were significant for microcytic anemia of 5.9/22.2 with MCV 61.0, otherwise grossly unremarkable. No leukocytosis. No significant electrolyte abnormalities. Renal function WNL. Hepatic function WNL. In the ED pt was transfused 2 units PRBCs. Pt will be admitted to the hospital for treatment and further evaluation of acute on chronic blood loss anemia secondary to abnormal uterine bleeding requiring blood transfusion. She was admitted to the hospitalist service and transfused 2u pRBCs with appropriate rise in Hb to 7.9. She was also given IV iron sucrose [address] Ghanshyam Gaona from [facility] was consulted and pelvic examination showed an endocervical polyp. US showed trace fluid identified within the endometrial canal with areas of endometrial flow on color Doppler imaging. The patient was started on Prometrium 200 mg daily and will follow up with Dr Gaona as an outpatient to schedule hysteroscopy, D+C, and possible polypectomy/myomectomy. She was discharged with instructions to continue iron repletion and was prescribed Prometrium and docusate. Time Attestation Discharge Coordination Time (in mins): 35 Quality: Safe Use of Opioids Does Pt have an Active Cancer Diagnosis on the Problem List?: No Quality: Stroke Does the patient have a stroke diagnosis?: No Physical Exam Vital Signs: Vital Signs: Last Vital Signs Temp 98.7 F 03/27/24 11:29 Pulse 76 03/27/24 11:29 Resp 18 03/27/24 11:29 BP 121/76 03/27/24 11:29 Pulse Ox 100 03/27/24 11:29 O2 Del Method Room Air 03/27/24 11:29 BMI result Body Mass Index 39.5 Gen: in no acute distress HEENT: sclera anicteric, moist mucus membranes Neck: supple Lungs: clear to auscultation bilaterally Heart: regular rate and rhythm, no murmurs Abd: soft, non-tender, non-distended Ext: no edema Skin: warm/well-perfused Neuro: alert and oriented x3, no focal findings Psych: appropriate affect DS: Data Data Completed and Pending Completed studies during hospitalization [Text1]: Laboratory Results WBC 6.4 X10*3/uL (4.8-10.8) 03/27/24 05:45 RBC 4.08 X10*6/uL (4.20-5.50) L 03/27/24 05:45 Hgb 7.9 g/dl (12.0-16.0) L D 03/27/24 05:45 Hct 27.6 % (37.0-47.0) L D 03/27/24 05:45 MCV 67.6 fL (80.0-98.0) L D 03/27/24 05:45 MCH 19.4 pg (27.0-33.0) L 03/27/24 05:45 MCHC 28.6 g/dl (31.0-35.0) L 03/27/24 05:45 RDW 28.7 % (11.0-16.0) H 03/27/24 05:45 Plt Count 333 X10*3/uL (160-400) 03/27/24 05:45 MPV 9.6 fL (9.4-12.3) 03/27/24 05:45 Immature Gran % (Auto) 0.3 % (0.0-0.4) 03/26/24 12:37 Neut % (Auto) 50.4 % (45-73) 03/26/24 12:37 Lymph % (Auto) 41.7 % (20-40) H 03/26/24 12:37 Amador % (Auto) 5.9 % (2-11) 03/26/24 12:37 Eos % (Auto) 1.4 % (0-4) 03/26/24 12:37 Baso % (Auto) 0.3 % (0-2) 03/26/24 12:37 Lymph # (Auto) 2.4 X10*3/uL (1.2-4.9) 03/26/24 12:37 Amador # (Auto) 0.3 X10*3/uL (0.1-1.2) 03/26/24 12:37 Eos # (Auto) 0.1 X10*3/uL (0.0-0.4) 03/26/24 12:37 Baso # (Auto) 0.0 X10*3/uL (0.0-0.2) 03/26/24 12:37 Abs Immat Gran (auto) 0.02 X10*3/uL (0.00-0.03) 03/26/24 12:37 Absolute Neuts (auto) 2.9 x10*3/uL (2.0-8.3) 03/26/24 12:37 Absolute Nucleated RBC 0.020 X10*3/uL (0.0-0.012) H 03/27/24 05:45 Nucleated RBC % (auto) 0.3 /100WBC (0.0-0.2) H 03/27/24 05:45 Sodium 140 mmol/L (135-145) 03/26/24 12:37 Potassium 3.6 mmol/L (3.3-5.1) 03/26/24 12:37 Chloride 111 mmol/L (96-108) H 03/26/24 12:37 Carbon Dioxide 25 mmol/L (22-29) 03/26/24 12:37 Anion Gap 8 (12-20) L 03/26/24 12:37 BUN 12 mg/dL (9-16) 03/26/24 12:37 Creatinine 0.70 mg/dL (0.5-1.4) 03/26/24 12:37 Estim Creat Clear Calc 130.7 03/26/24 12:37 Estimated GFR > 60 03/26/24 12:37 Random Glucose 111 mg/dL (60-115) 03/26/24 12:37 Calcium 8.6 mg/dL (8.4-10.2) D 03/26/24 12:37 Iron 14 mcg/dL (30-160) L 03/26/24 12:37 TIBC 310 mcg/dL (228-428) 03/26/24 12:37 % Saturation 5 % (15-50) L 03/26/24 12:37 Unsat Iron Binding 296 ug/dL 03/26/24 12:37 Total Bilirubin 0.3 mg/dL (0.0-1.0) 03/26/24 12:37 AST 14 U/L (5-31) 03/26/24 12:37 ALT 9 U/L (0-31) 03/26/24 12:37 Alkaline Phosphatase 57 U/L (39-117) 03/26/24 12:37 Total Protein 7.0 g/dL (6.5-8.0) 03/26/24 12:37 Albumin 3.6 g/dL (3.5-5.0) 03/26/24 12:37 Beta HCG, Quant < 2 mIU/mL 03/26/24 12:37 Blood Type B Positive 03/26/24 12:37 Antibody Screen NEGATIVE 03/26/24 12:37 Crossmatch See Detail 03/26/24 12:37 Discharge Plan Discharge Anticipated Discharge Date/Time: 03/27/24 11:27 Patient Disposition: Home, Self-Care Discharge Diagnosis: acute/chronic blood loss/iron deficiency anemia due to abnormal uterine bleeding Referrals: Elliot Simeon MD [Primary Care Provider] - 1 Week Ghanshyam Gaona MD [Physician] - 1 Week Discharge Medications: New progesterone micronized 100 mg Capsule 200 mg PO BEDTIME Qty: 14 0RF docusate sodium 100 mg capsule 100 mg PO BID Qty: 60 0RF Continued ferrous sulfate 325 mg (65 mg iron) Tablet 325 mg PO Q2D@0900 Discharge Orders: Discharge Order (Routine); Ordered 03/27/24 Ordered By: Kaylin Majano Diet: iron-rich Activity on Discharge: As tolerated Stand Alone Forms: Patient Portal Discharge page Print Language: Indonesian Care Plan Goals: control bleeding, treat anemia Health Concerns: acute/chronic blood loss/iron deficiency anemia due to abnormal uterine bleeding Plan of Treatment: take ferrous sulfate 324 mg once every other day; take docusate 100 mg twice daily to prevent constipation eat iron-rich foods follow up with Dr Ghanshyam Gaona from [facility] ([phone], [address] [place] [address], Suite [facility], [place] [address]) for preoperative visit for hysteroscopy with D+C and possible polypectomy/myomectomy Please follow up with your primary care doctor within 1 week. Return to the hospital if you experience recurrent or worsening symptoms. Assessment: See Discharge Summary. Patient Instructions: Dysfunctional Uterine Bleeding (DC), Iron Rich Diet (DC), Iron Deficiency Anemia (DC) Discharge Date/Time: 03/27/24 11:49
== END 2024-03-27 11:49 | disposition home or self-care (01) | DRG 532 ==
LOC: HO.ED 18:08 → HO.EDOVER 19:19
PROVIDERS: Physician Assistant Medical; Admitting Provider Student in an Organized Health Care Education/Training Program; Emergency Provider Emergency Medicine; PCP Internal Medicine; Visit Provider Family Medicine
DX: N92.4 Excessive bleeding in the premenopausal period (principal); D62 Acute posthemorrhagic anemia; N84.0 Polyp of corpus uteri; E28.2 Polycystic ovarian syndrome; Z79.899 Other long term (current) drug therapy
CPT/HCPCS: 36415; 76830; 76856; 80053; 83540; 84702; 85025; 85027; 86850; 86900; 86901; 86923; 99222; 99284; J1756; P9016

== ENCOUNTER → 2024-03-26 18:22 | Outpatient (BNV) | payer OTHER, SELFPAY | PROVIDERS: Admitting Provider Student in an Organized Health Care Education/Training Program; Emergency Provider Emergency Medicine; PCP Internal Medicine; Visit Provider Radiology Diagnostic Radiology | DX: N93.9 Abnormal uterine and vaginal bleeding, unspecified (principal); D62 Acute posthemorrhagic anemia | CPT/HCPCS: 76830; 76856 ==

== ENCOUNTER → 2024-03-26 18:40 | Outpatient (BNV) | payer OTHER, SELFPAY | PROVIDERS: Admitting Provider Student in an Organized Health Care Education/Training Program; Emergency Provider Emergency Medicine; PCP Internal Medicine; Visit Provider Obstetrics & Gynecology | DX: N93.9 Abnormal uterine and vaginal bleeding, unspecified (principal); D64.9 Anemia, unspecified; N84.1 Polyp of cervix uteri | CPT/HCPCS: 99222 ==

== ENCOUNTER → 2024-03-26 18:40 | Outpatient (BNV) | payer OTHER, SELFPAY | PROVIDERS: Admitting Provider Student in an Organized Health Care Education/Training Program; Emergency Provider Emergency Medicine; PCP Internal Medicine; Visit Provider Family Medicine | DX: D64.9 Anemia, unspecified (principal); N92.4 Excessive bleeding in the premenopausal period; D50.9 Iron deficiency anemia, unspecified; N93.9 Abnormal uterine and vaginal bleeding, unspecified | CPT/HCPCS: 99222; 99239 ==

== ENCOUNTER 2024-03-28 14:37 | Outpatient (REF) | payer OTHER, SELFPAY | END 2024-03-28 14:38 | disposition home or self-care (01) | LOC: HO.LNP 14:37 | PROVIDERS: PCP Internal Medicine; Visit Provider Obstetrics & Gynecology | DX: N84.1 Polyp of cervix uteri (principal); N93.9 Abnormal uterine and vaginal bleeding, unspecified; N85.8 Other specified noninflammatory disorders of uterus; Z30.430 Encounter for insertion of intrauterine contraceptive device | CPT/HCPCS: 57500; 58300; 81025; 88305; J7298 ==

== ENCOUNTER 2024-03-28 14:37 | Outpatient (AMB) | payer OTHER, SELFPAY ==
--- NOTE | 2024-03-28 15:12 | MHC.OFFVIS ---
Vital Signs 03/28/24 15:16 Height 5 ft 4 in Weight 231 lb BMI 39.6 BP 108/64 Intake Visit Reasons: polypectomy/ ? mirena insertion Housekeeping Supervisor Required: No Information Interpreted: non-clinical & clinical Tdp Displays Analyst: Tdp Displays Analyst Present Accompanied by: Self / Same As Patient Allergies latex Allergy (Verified 03/28/24 15:16) Rash acetaminophen [From Tylenol] Adverse Reaction (Mild, Verified 03/28/24 15:16) Nausea Is last menstrual period known: Yes Last menstrual period: 01/12/20 Post menopausal: No Patient : No Do you need a note to return to daycare/school/sports/work: Yes (for surgery on thursday) HPI Comments Details: The patient went to the lab a CBC on 03/26, I received a call from the lab for a critical low value of H&H at 5.8/22.7, this was followed by a call to the patient who was instructed to go to emergency room, the patient went to the emergency room received 2 units of packed RBCs and was admitted overnight repeat H&H in a.m. after 2 units of blood transfusion went up to 7.9/27.6. The patient gives a history of long-term heavy vaginal bleeding associated with pelvic cramping and abdominal cramps and her LMP was 1 week ago, the date of the visit to emergency room her menstrual cycles has been slowing down markedly Pelvic exam in the emergency room showed no active bleeding minimal blood per vagina and a cervical polyp of 2 cm HCG was less than 2 GC/CT, BV panel and Trichomonas were all negative Pelvic ultrasound showed the following: Transabdominal imaging was performed for overall anatomy. Transvaginal imaging was performed for additional detail. The anteverted uterus measures 8.3 cm in length on transabdominal imaging and 7.9 cm in length on transvaginal imaging. The endometrial stripe measures 5.2 mm in thickness on transvaginal imaging a trace amount fluid within the endometrial canal. Flow present over the endometrium on color Doppler imaging. Right ovary measures 3.0 x 2.9 x 1.7 cm. Left ovary measures 3.3 x 2.2 x 2.6 cm. Flow present at the left ovary on color Doppler imaging. No clear flow demonstrated at the right ovary on the provided sonographic images. Trace free fluid visualized within the pelvis Last co testing in 4/22 was negative The patient was discharged on Prometrium 200 mg p.o. q.d. to follow-up in the office today. Vaginal Bleeding has resolved with minimal spotting PFSH Medical History Obesity Iron deficiency anemia Surgical History H/O rhinoplasty History of delivery Family History Mother Hypertension History of hysterectomy Father Diabetes Maternal Grandmother Bone marrow disease Maternal Aunt Thyroid cancer Social History Household Members: Spouse, Family and Children Housing: Condominium Are you a primary managed care coordinator to a significant other at home: No Do you presently have visiting nurse or other home services: No Alcohol intake: current Alcohol intake frequency: holidays/special occasions only Patient Tobacco Use Status: Never used Tobacco e-Cigarette/Vaping Use: Never Used Second Hand Smoke Exposure: No service: No Current occupational status: employed Gender identity: Female Cognitive needs: No Hearing needs: No Vision needs: No Female Reproductive History Menstrual Age of Menarche: 11 Date of last menstrual period: 01/12/20 Total pregnancies: 2 Full term: 2 Review of Systems Const All systems reviewed & are unremarkable except as noted in HPI and below Card Reports as per HPI and Reports no additional complaints Resp Reports as per HPI and Reports no additional complaints GI Reports as per HPI and Reports no additional complaints Reports as per HPI Physical Exam Const General: cooperative, healthy appearing and comfortable Resp Effort & Inspection: normal respiratory effort Auscultation: clear to auscultation bilaterally Percussion: percussion normal Cardio Palpation: normal PMI Rate: regular rate Rhythm: regular rhythm Heart sounds: no murmurs and no rubs Peripheral pulses: Peripheral pulses 2+ throughout GI Inspection: Yes normal to inspection Palpation (GI): Soft to palpation, nontender, no guarding, not rigid and No hepatosplenomegaly present Percussion: Yes normal to percussion Auscultation: normal bowel sounds Rectal Exam - Female: deferred General: Yes no CVA tenderness External Female Exam: normal external appearance and normal appearance of the urethra Speculum Exam - Vagina: normal appearance of the vagina, normal palpation, no lesions and no masses Speculum Exam - Cervix: normal palpation, no lesions, no masses, nontender and Other cervical findings present (Endocervical polyp 2 cm) Bimanual exam- vagina & uterus: normal bimanual exam, normal palpation, uterine size normal, normal palpation, uterine shape normal, No Cervical tenderness present, non-tender and other (No vaginal bleeding) Bimanual Exam- Adnexa, other: normal adnexae Back/Spine/Pelvis Back: no CVA tenderness Office Procedures Endometrial Biopsy Details: The patient was counseled regarding the indication and benefits of endometrial sampling to rule out endometrial pathology including not limited to endometrial hyperplasia or endometrial cancer and others; The alternatives (Either do nothing vs. hysteroscopy D&C) & the risks were discussed with the patient including but not limited: pain, uterine perforation, bleeding, infection, possible injury to bladder, bowel, ureter, possible need for blood transfusion with all its possible risks. The patient verbalized understanding all questions answered and signed consent. Urine test done in the office was negative The patient was placed into the dorsal lithotomy position; a speculum was inserted in the vagina. Using aseptic technique for the procedure, the cervix was cleansed with Betadine. The anterior lip of the cervix was grasped with a single tooth tenaculum. The uterus was sounded to 7 cm with a 4 mm Pipelle was used. Tissues samples were obtained and placed in formalin, in a patient labeled container and sent to the pathology department. At the end of the procedure, there was minimal bleeding noted The patient tolerated the procedure well and was discharged in good condition with the following instructions: Nothing in the vagina until the bleeding stops. No sex until the bleeding stops, to call if any of the following occurs: fever (>100.4), flu-like symptoms, abdominal pain, heavy bleeding, four smelling vaginal discharge. The patient was instructed to schedule a Follow up appointment in 2 weeks to discuss pathology results of the biopsy and treatment options. This note was generated with a voice recognition program. Some errors may have been overlooked during the review of this note. Sometimes these errors may affect the content or meaning of a given sentence. 39141-Xkcdhwvdooi Biopsy DRAINAGE INSPECTOR Biopsy Before the procedure was started, discussed with the patient the procedure technique, alternatives & all the risks associated with the procedure including but not limited to: bleeding , infection, uterine perforation, injury to bladder, vessels, bowels, possible need for transfusion with all its risks, and others. All questions were answered, the patient verbalized understanding and signed the consent. Urine test done in the office was negative Using a long Francisca Clamp the endocervical polyp was grasped and twisted around till it came off, hemostasis was secured using pressure. The patient tolerated the procedure well. Instructions were given to the patient to call if bleeding, temp>100.4 occur. The patient verbalized understanding and agreed with the plan. This note was generated with a voice recognition program. Some errors may have been overlooked during the review of this note. Sometimes these errors may affect the content or meaning of a given sentence. 39948-Jhqouu of Cervix Procedure code (CPT) selection complete IUD Insert/Removal Details Details: The patient is presenting for Mirena IUD insertion Urine test was done in the office and was negative; All the contraindications were excluded. The following possible complications were discussed with the patient: Intrauterine , Ectopic , Sepsis, Pelvic Infection, Irregular Bleeding and Amenorrhea, Perforation, Expulsion, Ovarian Cysts, Breast Cancer, The following adverse effects were discussed with the patient: alteration of menstrual bleeding pattern, including: unscheduled uterine bleeding decreased uterine bleeding increased scheduled uterine bleeding female genital tract bleeding ,amenorrhea , genital discharge , vulvovaginitis , breast pain , benign ovarian cyst and associated complications , dysmenorrhea , Gastrointestinal disorders abdominal/pelvic pain, headache/migraine , back pain , acne , depression Alternative options were discussed with the patient including but not limited: control pills, patch, NuvaRing, Depo-medroxyprogesterone acetate, Nexplanon, copper IUD, sterilization, vasectomy, others The procedure was explained in detail to patient , at the end patient signed the informed consent obtained. A no touch technique was used throughout the procedure. A speculum was placed into vagina and cervix was cleaned with betadine). A tenaculum was placed. A plastic sound was advanced through the external and internal os until it reached the fundus of the uterus, the depth was 8 cm. The sound was then withdrawn. The IUD was loaded in a sterile manner and advanced into position. The string was visualized and cut to 3 cm. Tenaculum site hemostatic. All instruments removed from vagina. Patient tolerated the procedure well. NO complications were noted. Patient was instructed to call for fever over 100.4, significant pain unrelieved by Motrin, IUD expulsion, heavy bleeding, or abnormal discharge. In addition, the following clinical considerations were discussed with the patient to call for removal: A stroke or heart attack ,Very severe or migraine headaches ,Unexplained fever ,Yellowing of the skin or whites of the eyes, as these may be signs of serious liver problems , or suspected , Pelvic pain or pain during sex ,HIV positive seroconversion in herself or her partner , Possible exposure to sexually transmitted infections Unusual vaginal discharge or genital sores , severe vaginal bleeding or bleeding that lasts a long time, or if she misses a menstrual period, Inability to feel Mirena's threads Counseled the patient that the IUD does not protect against STI's, recommended use of condoms for the first 7 days post insertion and explained to the patient that condoms are recommended for patients at risk for sexually transmitted infections. Informed the patient that Mirena IUD is FDA approved for 8 years for contraception for 5 years for the treatment of heavy menses Instructed the patient to schedule a Follow up appointment in 4 to 6 weeks following insertion. This note was generated with a voice recognition program. Some errors may have been overlooked during the review of this note. Sometimes these errors may affect the content or meaning of a given sentence. Procedure code (CPT) selection complete Office Meds Mirena 21 mcg/24 hr (up to 8 years) 52 mg intrauterine device Performing Provider: Ghanshyam Gaona MD Performing Location: [facility] Documented (not given) by: Ghanshyam Gaona MD on 03/28/24 15:54 Dose Route Admin Location Dispensed Lot Number Expiration Date [facility] Staff Psychologist 1 device intrauterine ea Assessment & Plan Assessment & Plan (1) Abnormal uterine bleeding (AUB): Comment: Significant anemia status post 2 units of blood transfusion Endocervical polyp Code(s): N93.9 - Abnormal uterine and vaginal bleeding, unspecified Category: Medical Plan: Iron sulfate 325 mg p.o. t.i.d. recommended to the patient. CBC, TSH ordered. Discussed with the patient the different causes of abnormal bleeding including thyroid disorders, uterine and ovarian pathology, endocervical/endometrial polyp, endometrial hyperplasia, carcinoma and other potential causes. Discussed with the patient the work up including CBC (to r/o anemia), TSH, prolactin, pelvic Ultrasound, endometrial sampling to r/o endometrial pathology. Recommended to the patient that the next step is an office endometrial sampling with polypectomy with Mirena IUD insertion or hysteroscopy D&C possible polypectomy with Mirena IUD insertion to r/o endometrial pathology including hyperplasia or cancer. All the pros and cons risks and benefits of each approach were discussed with the patient, endometrial biopsy being less invasive, office procedure with less sensitivity and inability diagnose a polyp and removal versus hysteroscopy done under anesthesia more invasive more sensitive to endometrial cancer and possibility of diagnosing and endometrial polyp with the possibility of polypectomy. All questions were answered pt verbalized understanding and decided to proceed with EMB/polypectomy and Mirena IUD insertion. So a more detailed discussion about it was conducted including mechanism of action, risks (uterine perforation, infection, injury to bladder, bowel, displacement, and others) benefits (hypo menorrhea, amenorrhea, ...). GC/CT were taken 2 days ago and were negative. All questions answered, the patient verbalized understanding. Instructions given the patient to discontinue Prometrium EMB/polypectomy/Mirena IUD insertion done, see procedure note (2) Endocervical polyp: Code(s): N84.1 - Polyp of cervix uteri Category: Medical Plan: Polypectomy uterine done, see procedure note Orders: Orders AMB DRAINAGE INSPECTOR Biopsy Today N84.1 - Polyp of cervix uteri AMB Endometrial Biopsy Today N93.9 - Abnormal uterine and vaginal bleeding, unspecified AMB IUD Insertion/Removal - Practice Supplied Today N93.9 - Abnormal uterine and vaginal bleeding, unspecified Complete Blood Count no Diff Today N93.9 - Abnormal uterine and vaginal bleeding, unspecified Medications: New Mirena (levonorgestrel) 1 device intrauterine ONCE 1 ea 0RF IUD insertion NS N93.9 - Abnormal uterine and vaginal bleeding, unspecified Coding Level of Care Code Est Pt Level 3 (81176) Procedure Only Diagnoses Abnormal uterine bleeding (AUB) N93.9 Endocervical polyp N84.1 CPT Codes Endometrial Biopsy - CPT: 13862-Vmhcdfztzvz Biopsy ([id number]) DRAINAGE INSPECTOR Biopsy - CPT: 25557-Lifkkb of Cervix ([id number])
[2024-03-28 15:16] VITALS: BP 108/64; BMI 39.6
== END 2024-03-28 16:07 | disposition home or self-care (01) ==
LOC: HO.HWS 14:37
PROVIDERS: PCP Internal Medicine; Visit Provider Obstetrics & Gynecology
DX: N93.9 Abnormal uterine and vaginal bleeding, unspecified (principal); N84.1 Polyp of cervix uteri; Z32.02 Encounter for pregnancy test, result negative; Z30.430 Encounter for insertion of intrauterine contraceptive device
CPT/HCPCS: 57500; 58300; 99213

== ENCOUNTER 2024-04-14 16:05 | Outpatient (AMB) | payer OTHER, SELFPAY ==
--- NOTE | 2024-04-14 16:11 | A.OFFVIS_ITS ---
Intake Visit Reasons: EMB results IUD F/U Senior Statistician: Senior Statistician Present (Amy) Accompanied by: Self / Same As Patient Allergies latex Allergy (Verified 04/14/24 16:11) Rash acetaminophen [From Tylenol] Adverse Reaction (Mild, Verified 04/14/24 16:11) Nausea Is last menstrual period known: Yes Last menstrual period: 01/12/20 Post menopausal: No Patient : No Do you need a note to return to daycare/school/sports/work: Yes (for surgery on thursday) HPI Comments Details: Presenting post EMB/Mirena IUD insertion for follow-up. Pathology showed the following: A. Endometrium, biopsy: - Fragments of endometrial polyp with focal squamous morular metaplasia. - Background disordered proliferative endometrium. - No atypia identified. See comment. B. Cervix, polypectomy: Fragments of endometrial polyp; no endocervical epithelium identified. Comment: Squamous morular metaplasia carries a mildly increased risk of an endometrial cancer outcome (approximately 5%) and may resolve spontaneously. However, follow-up with a repeat endometrial sample in approximately 3-6 months is advised to exclude persistence , as clinically appropriate [facility] Medical History Obesity Iron deficiency anemia Surgical History H/O rhinoplasty History of delivery Family History Mother Hypertension History of hysterectomy Father Diabetes Maternal Grandmother Bone marrow disease Maternal Aunt Thyroid cancer Social History Household Members: Spouse, Family and Children [facility] Are you a primary career development consultant to a significant other at home: No Do you presently have visiting nurse or other home services: No Alcohol intake: current Alcohol intake frequency: holidays/special occasions only Patient Tobacco Use Status: Never used Tobacco e-Cigarette/Vaping Use: Never Used Second Hand Smoke Exposure: No service: No Current occupational status: employed Gender identity: Female Cognitive needs: No Hearing needs: No Vision needs: No Female Reproductive History Menstrual Age of Menarche: 11 Date of last menstrual period: 01/12/20 Total pregnancies: 2 Full term: 2 Review of Systems Card Reports as per HPI and Reports no additional complaints Resp Reports as per HPI and Reports no additional complaints GI Reports as per HPI and Reports no additional complaints Reports as per HPI Physical Exam Const General: cooperative, healthy appearing and comfortable Resp Effort & Inspection: normal respiratory effort Auscultation: clear to auscultation bilaterally Percussion: percussion normal Cardio Palpation: normal PMI Rate: regular rate Rhythm: regular rhythm Heart sounds: no murmurs and no rubs Peripheral pulses: Peripheral pulses 2+ throughout GI Inspection: Yes normal to inspection Palpation (GI): Soft to palpation, nontender, no guarding, not rigid and No hepatosplenomegaly present Percussion: Yes normal to percussion Auscultation: normal bowel sounds Rectal Exam - Female: deferred Assessment & Plan Assessment & Plan (1) Abnormal uterine bleeding (AUB): Comment: Endometrial polyp with squamous morules Mirena IUD in-situ Code(s): N93.9 - Abnormal uterine and vaginal bleeding, unspecified Category: Medical Plan: Discussed with the patient the results the pathology showing endometrial polyp with squamous morules risk of associated endometrial cancer, recommended hyste roscopy D&C polypectomy/possible myomectomy with Mirena IUD removal and reinsertion. Discussed with the patient the procedure , all benefits and risks including but not limited to inability to complete the procedure , insufficient endometrial tissue for a complete evaluation of the endometrial cavity , bleeding, infection, possible need for blood transfusion with all its risk ( HIV,syphilis, Hepatitis, anaphylaxis shock, others..), injury to bladder, rectum, possible need for laparoscopy/laparotomy or hysterectomy. The patient verbalized understanding and signed the consent. Instructions given the patient to stay NPO after midnight the day prior to the procedure and to take only the specific medication (s) discussed the morning of the surgical procedure and to schedule a 2 week postoperative appointment Coding Level of Care Code Est Pt Level 3 (58274) Diagnoses Abnormal uterine bleeding (AUB) N93.9
== END 2024-04-14 16:38 | disposition home or self-care (01) ==
LOC: HO.HWS 16:05
PROVIDERS: PCP Internal Medicine; Visit Provider Obstetrics & Gynecology
DX: N93.9 Abnormal uterine and vaginal bleeding, unspecified (principal)
CPT/HCPCS: 99213

== ENCOUNTER 2024-04-21 08:02 | Day surgery (SDC) | payer OTHER, SELFPAY ==
--- NOTE | 2024-04-20 08:49 | P.CONAN_ITS ---
Documented by User: Jelena Edwards NP 04/20/24 08:50 HPI - Anesthesia Eval Consult details Narrative: 34yo F for D&C Hysteroscopy,possible polypecyomy,possible myomectomy,with IUD removal and Insertion [facility] admit 03/2024: She was admitted to the hospitalist service and transfused 2u pRBCs with appropriate rise in Hb to 7.9. She was also given IV iron sucrose [address] Ghanshyam Gaona from [facility] was consulted and pelvic examination showed an endocervical polyp. US showed trace fluid identified within the endometrial canal with areas of endometrial flow on color Doppler imaging. The patient was started on Prometrium 200 mg daily and will follow up with Dr Gaona as an outp atient to schedule hysteroscopy, D+C, and possible polypectomy/myomectomy. She was discharged with instructions to continue iron repletion and was prescribed Prometrium and docusate. PMFSH Active Problems Active Problems: All Active Problems Acute on chronic anemia (Acute) Endocervical polyp (Acute) Anemia (Acute) DUB (dysfunctional uterine bleeding) (Acute) History of irregular menstrual bleeding (Acute) Abnormal uterine bleeding (AUB) (Acute) Menorrhagia, premenopausal (Acute) Low back pain (Acute) PCOS (polycystic ovarian syndrome) (Acute) Potential exposure to STD (Acute) Cervical cancer screening (Acute) Well woman exam with routine gynecological exam (Acute) Physical exam (Acute) Obesity (Acute) Iron deficiency anemia (Chronic) Past Medical History Medical History Obesity Iron deficiency anemia Family History Family History Mother Hypertension History of hysterectomy Father Diabetes Maternal Grandmother Bone marrow disease Maternal Aunt Thyroid cancer Surgical History Surgical History H/O rhinoplasty History of delivery Social History Social History Household Members: Spouse, Family and Children Housing: Condominium Are you a primary wound care specialist to a significant other at home: No Do you presently have visiting nurse or other home services: No Alcohol intake: current Alcohol intake frequency: does not drink Patient Tobacco Use Status: Never used Tobacco e-Cigarette/Vaping Use: Never Used Second Hand Smoke Exposure: No service: No Current occupational status: employed Gender identity: Female Cognitive needs: No Hearing needs: No Vision needs: No Meds Allergies Allergy/AdvReac Type Severity Reaction Status Date / Time latex Allergy Rash Verified 04/14/24 16:11 acetaminophen [From Tylenol] AdvReac Mild Nausea Verified 04/14/24 16:11 Home Medications ?Medication ?Instructions ?Recorded ?Confirmed ?Last Taken ?Type ferrous sulfate 325 mg (65 mg 325 mg PO Q2D@0900 03/27/24 03/30/24 03/25/24 History iron) tablet Exam Pertinent Lab Results Pertinent Lab Results: Laboratory Tests 03/26/24 03/30/24 12:37 08:31 WBC 7.5 Hgb 8.9 L Hct 30.6 L Plt Count 364 Sodium 140 Potassium 3.6 Chloride 111 H Carbon Dioxide 25 BUN 12 Creatinine 0.70 Assessment and Plan Assessment Anesthesia Assessment: Chart Reviewed Documented by User: Alcon Parsons MD 04/21/24 10:37 [facility] Past Medical History Medical History Obesity Iron deficiency anemia Patient : No Family History Family History Mother Hypertension History of hysterectomy Father Diabetes Maternal Grandmother Bone marrow disease Maternal Aunt Thyroid cancer Family history of problems with anesthesia: No Surgical History Surgical History H/O rhinoplasty History of delivery History of Problems with Anesthesia: No Social History Social History Household Members: Spouse, Family and Children Housing: Condominium Are you a primary wound care specialist to a significant other at home: No Do you presently have visiting nurse or other home services: No Alcohol intake: current Alcohol intake frequency: does not drink Patient Tobacco Use Status: Never used Tobacco e-Cigarette/Vaping Use: Never Used Second Hand Smoke Exposure: No service: No Current occupational status: employed Gender identity: Female Cognitive needs: No Hearing needs: No Vision needs: No Meds Allergies Allergy/AdvReac Type Severity Reaction Status Date / Time latex Allergy Rash Verified 04/14/24 16:11 acetaminophen [From Tylenol] AdvReac Mild Nausea Verified 04/14/24 16:11 Home Medications ?Medication ?Instructions ?Recorded ?Confirmed ?Last Taken ?Type ferrous sulfate 325 mg (65 mg 325 mg PO Q2D@0900 03/27/24 03/30/24 03/25/24 History iron) tablet Exam Airway Mallampati Class: II TM Dist: >3cm Neck ROM: Full Loose/Missing/Broken Teeth: No Heart: ok Lungs: ok Assessment and Plan Assessment Anesthesia Assessment: Anesthesia Plan Discussed Final Anesthetic Review Family History of Problems with Anesthesia: No History of Problems with Anesthesia: No NPO: Yes ASA Class: III Final Preanesthetic Review: No Changes in Pt Med Stat, Meds/Allgs Chart Reviewed, Consent Obtained/Reviewed and Anes Risks/Benef Reviewed Patient Risk: Intermediate Procedure Risk: Low Anesthetic Plan Anesthetic Plan: GA and Agree w/ Assess. and Plan Disposition: Standard PACU
[2024-04-21 08:48] VITALS: BP 131/63; PULSE 53; RESP 16; TEMP 36.3; O2SAT 99; BMI 39.8
[2024-04-21 08:57] LABS: UPreg QC Valid YES; Urine Pregnancy NEGATIVE (NEGATIVE)
[2024-04-21] MEDS: Lactated Ringers 1,000 ML 100 ML IVCONT (09:06)
--- NOTE | 2024-04-21 09:57 | MHC.SHP ---
Pre-Procedural Eval Section A - 24 Hr Update-Section A only Date of Service: 04/21/24 The patient is an INPATIENT: No Changes since office visit: No Cold of Flu in the past 2 weeks, No New Medical Problems, No Changes in Medication and No Patient answered all questions The patient has been examined within 24 hours of the surgical procedure. The History & Physical has been completed within 30 days and I have reviewed it.: Yes Section B - Complete if H&P > 30 days Chief Complaint: Abnormal uterine and vaginal bleeding, unspecified Allergies: Allergies Allergy/AdvReac Type Severity Reaction Status Date / Time latex Allergy Rash Verified 04/14/24 16:11 acetaminophen [From Tylenol] AdvReac Mild Nausea Verified 04/14/24 16:11 Plan Diagnosis/Plan: Unchanged I have reviewed the history and physical and performed a pertinent physical examination on my patient. No changes have occurred unless specified. Time Spent With Patient Time: Total time managing care of this patient today ____ minutes.
--- NOTE | 2024-04-21 10:41 | PM.OP ---
Brief Operative Note Date of Service: 04/21/24 Pre-op diagnosis: AUB, endometrial polyp with squamous morules IUD in site Post-op diagnosis: same (Endometrial polyp) Procedure: Hysteroscopy D&C, Polypectomy, IUD removal and Mirena IUD reinsertion Surgeon: Ghanshyam Gaona MD Anesthesia: GLMA Was an Electric Motor Repairing Supervisor used for this Procedure?: No Estimated blood loss (mL): 0 Pathology: other (Endometrial Scrapping. Polyp) Condition: stable Disposition: PACU
--- NOTE | 2024-04-21 10:42 | P.OP_ITS ---
Operative Note Operative Note Date of Service: 04/21/24 Narrative: Preop Diagnosis: Abnormal uterine bleeding, Endometrial polyp with squamous morules, Mirena IUD in Situ Operation: Diagnostic Hysteroscopy, Dilataion & Curettage and polypectomy, Mirena IUD removal and reinsertion Post Op Diagnosis: Endometrial Polyp QBL: Minimal Anesthesia: GLMA Surgeon: Ghanshyam Gaona MD Brokerage Branch Manager: None Complication: None Pathology: Endometrial Scrapings, Endometrial polyp Procedure: The patient was put in the dorsal lithotomy position, scrubbed, and draped in the usual manner. A sterile speculum was inserted in the patient's vagina. The anterior lip of the cervix was grasped with a single tooth tenaculum. Mirena IUD string was identified, grasped with a long [place] clamp and Mirena IUD removed without any complications. The cervix was then dilated up to 5 mm, then the scope was inserted in the patient's uterus. Inspection revealed endometrial polyp. The Myosure Reach device was used; it was introduced through the operative channel and polypectomy done with no complications. The scope was then taken out from the uterine cavity, sharp curettings was carried on with minimal to moderate amount of tissues retrieved. At the end of the procedure, all instruments were taken out of the patient uterine and vaginal cavity. Then, the uterine depth was measured to be 9 cm using a sound. The sound was then withdrawn. The IUD was loaded and advanced into position. The string was visualized and cut to 3 cm. All instruments removed from vagina. Patient tolerated the procedure well. NO complications were noted. The single tooth tenaculum was removed and homeostasis was assured using pressure,. The patient tolerated the procedure well and was transferred to the PACU in a stable condition.
[2024-04-21 10:50] VITALS: BP 131/78; PULSE 75; RESP 14; TEMP 36.5; O2SAT 94
[2024-04-21 10:55] VITALS: BP 145/82; PULSE 60; RESP 14; O2SAT 95
[2024-04-21 11:00] VITALS: BP 151/88; PULSE 67; RESP 16; O2SAT 98
[2024-04-21 11:05] VITALS: BP 126/76; PULSE 50; RESP 16; O2SAT 99
[2024-04-21 11:20] VITALS: BP 125/76; PULSE 60; RESP 16; TEMP 36.5; O2SAT 99
== END 2024-04-21 12:22 | disposition home or self-care (01) ==
PROVIDERS: PCP Internal Medicine; Visit Provider Obstetrics & Gynecology
PROC: 0UDB8ZZ Extraction of Endometrium, Via Natural or Artificial Opening Endoscopic (ICD-10-PCS; CPT 58558; principal; 2024-04-21 10:30)
DX: N93.9 Abnormal uterine and vaginal bleeding, unspecified (principal); N84.0 Polyp of corpus uteri; Z97.5 Presence of (intrauterine) contraceptive device; D50.9 Iron deficiency anemia, unspecified; E66.9 Obesity, unspecified; Z79.899 Other long term (current) drug therapy; Z91.040 Latex allergy status; Z88.8 Allergy status to other drugs, medicaments and biological substances
CPT/HCPCS: 58558; 58301; 58300; 81025; 88305; J1885; J2003; J2405; J2704; J3010; J7298

== ENCOUNTER → 2024-04-21 08:02 | Outpatient (BNV) | CPT/HCPCS: 58300; 58301; 58558 ==

== ENCOUNTER 2024-05-10 15:12 | Outpatient (AMB) | payer OTHER, SELFPAY ==
--- NOTE | 2024-05-10 15:13 | MHC.OFFVIS ---
Intake Visit Reasons: post op Trust Administrative Assistant: Trust Administrative Assistant Present (Amy) Accompanied by: Self / Same As Patient Allergies latex Allergy (Verified 05/10/24 15:14) Rash acetaminophen [From Tylenol] Adverse Reaction (Mild, Verified 05/10/24 15:14) Nausea HPI Comments Details: The patient is presenting post hysteroscopy D&C polypectomy with no complaints minimal vaginal bleeding no feverishness chills or abdominal pain. The pathology showed the following: A. Endometrium, polypectomy: Fragments of endometrial polyp; background stromal pseudodecidual change consistent with exogenous progestin; no atypia identified. B. Endometrium, curettage: - Superficial fragments of weakly proliferative endometrium with breakdown; scattered stromal pseudodecidual changes consistent with exogenous progestin; no atypia or hyperplasia identified. - Few fragments of endocervical and squamous epithelium within normal limits; no atypia identified The following workup was done.: H&H= 8.9/30.6 TSH, hCG, GC and chlamydia were negative. 04/09 Office endometrial biopsy pathology showed the following: A. Endometrium, biopsy: - Fragments of endometrial polyp with focal squamous morular metaplasia. - Background disordered proliferative endometrium. - No atypia identified. See comment. B. Cervix, polypectomy: Fragments of endometrial polyp; no endocervical epithelium identified. Comment: Squamous morular metaplasia carries a mildly increased risk of an endometrial cancer outcome (approximately 5%) and may resolve spontaneously. However, follow-up with a repeat endometrial sample in approximately 3-6 months is advised to exclude persistence, as clinically appropriate Co testing was done in 07/05 was negative. Pelvic ultrasound showed the following: Transabdominal imaging was performed for overall anatomy. Transvaginal imaging was performed for additional detail. The anteverted uterus measures 8.3 cm in length on transabdominal imaging and 7.9 cm in length on transvaginal imaging. The endometrial stripe measures 5.2 mm in thickness on transvaginal imaging a trace amount fluid within the endometrial canal. Flow present over the endometrium on color Doppler imaging. Right ovary measures 3.0 x 2.9 x 1.7 cm. Left ovary measures 3.3 x 2.2 x 2.6 cm. Flow present at the left ovary on color Doppler imaging. No clear flow demonstrated at the right ovary on the provided sonographic images. Trace free fluid visualized within the pelvis. 04/21/2024 the patient underwent hysteroscopic polypectomy with a D&C with Mirena IUD removal and Mirena IUD insertion Since then the patient is doing well with no complaints minimal vaginal bleeding, on iron sulfate 325 mg p.o. b.i.d. PFSH Medical History Obesity Iron deficiency anemia Surgical History H/O rhinoplasty History of delivery Family History Mother Hypertension History of hysterectomy Father Diabetes Maternal Grandmother Bone marrow disease Maternal Aunt Thyroid cancer Social History Household Members: Spouse, Family and Children [facility] Are you a primary rn progressive care unit to a significant other at home: No Do you presently have visiting nurse or other home services: No Alcohol intake: current Alcohol intake frequency: does not drink Patient Tobacco Use Status: Never used Tobacco e-Cigarette/Vaping Use: Never Used Second Hand Smoke Exposure: No service: No Current occupational status: employed Gender identity: Female Cognitive needs: No Hearing needs: No Vision needs: No Female Reproductive History Menstrual Age of Menarche: 11 Review of Systems Const All systems reviewed & are unremarkable except as noted in HPI and below Reports as per HPI and Reports no additional complaints GI Reports no additional complaints Reports no additional complaints Assessment & Plan Assessment & Plan (1) Abnormal uterine bleeding (AUB): Comment: Endometrial polyp with squamous morules D&C/polypectomy pathology no endometrial hyperplasia or malignancy Mirena IUD in-situ Anemia Code(s): N93.9 - Abnormal uterine and vaginal bleeding, unspecified Category: Medical Plan: Recommended the patient to continue taking iron sulfate 325 mg p.o. b.i.d. and repeat CBC in 3 months. Order placed. Discussed with the patient the results the D and C/polypectomy pathology showing no evidence of squamous Morules, sensitivity specificity, false-positive false-negative in detected endometrial pathology were discussed with the patient. Discussed with the patient the association of squamous Morules finding with the risk endometrial cancer, therefore recommended to the patient to schedule a repeat endometrial biopsy in 3 months. Instructions given the patient to call in case of vaginal bleeding occurs prior to next EMB appointment. All questions answered, the patient verbalized understanding. Orders: Orders Complete Blood Count no Diff 3 Months N93.9 - Abnormal uterine and vaginal bleeding, unspecified Coding Level of Care Code Est Pt Level 3 (75731) Diagnoses Abnormal uterine bleeding (AUB) N93.9
== END 2024-05-10 15:26 | disposition home or self-care (01) ==
LOC: HO.HWS 15:12
PROVIDERS: PCP Internal Medicine; Visit Provider Obstetrics & Gynecology
DX: N93.9 Abnormal uterine and vaginal bleeding, unspecified (principal)
CPT/HCPCS: 99213

== ENCOUNTER → 2024-05-10 15:12 | Outpatient (BNVA) | payer OTHER, SELFPAY | PROVIDERS: PCP Internal Medicine; Visit Provider Obstetrics & Gynecology ==

== ENCOUNTER 2024-08-11 15:18 | Outpatient (REF) | payer OTHER, SELFPAY | END 2024-08-11 15:19 | disposition home or self-care (01) | LOC: HO.LNP 15:18 | PROVIDERS: Visit Provider Surgery | DX: N93.9 Abnormal uterine and vaginal bleeding, unspecified (principal); Z32.02 Encounter for pregnancy test, result negative | CPT/HCPCS: 58100; 81025; 88305 ==

== ENCOUNTER 2024-08-11 15:52 | Outpatient (AMB) | payer OTHER, SELFPAY ==
--- NOTE | 2024-08-11 16:09 | A.OFFVIS_ITS ---
Vital Signs 08/11/24 16:14 Height 5 ft 4 in Weight 235 lb BMI 40.3 Intake Visit Reasons: EMB/ labs results Replanting Machine Operator Required: No Information Interpreted: non-clinical & clinical Barrel Endshake Adjuster: Barrel Endshake Adjuster Present (Roxane LOVETT) Accompanied by: Self / Same As Patient Allergies latex Allergy (Verified 08/11/24 16:15) Rash acetaminophen [From Tylenol] Adverse Reaction (Mild, Verified 08/11/24 16:15) Nausea Is last menstrual period known: No (mirena) HPI Comments Details: Presenting for EMB [facility] Medical History Obesity Iron deficiency anemia Surgical History H/O rhinoplasty History of delivery Family History Mother Hypertension History of hysterectomy Father Diabetes Maternal Grandmother Bone marrow disease Maternal Aunt Thyroid cancer Social History Household Members: Spouse, Family and Children [facility] Are you a primary skin care therapist to a significant other at home: No Do you presently have visiting nurse or other home services: No Alcohol intake: current Alcohol intake frequency: does not drink Patient Tobacco Use Status: Never used Tobacco e-Cigarette/Vaping Use: Never Used Second Hand Smoke Exposure: No service: No Current occupational status: employed Gender identity: Female Cognitive needs: No Hearing needs: No Vision needs: No Female Reproductive History Menstrual Age of Menarche: 11 Physical Exam Vital Signs: BMI result Body Mass Index 40.3 Office Procedures Endometrial Biopsy Details: The patient was counseled regarding the indication and benefits of endometrial sampling to rule out endometrial pathology including not limited to endometrial hyperplasia or endometrial cancer and others; The alternatives (Either do nothing vs. hysteroscopy D&C) & the risks were discussed with the patient including but not limited: pain, uterine perforation, bleeding, infection, possible injury to bladder, bowel, ureter, possible need for blood transfusion with all its possible risks. The patient verbalized understanding all questions answered and signed consent. Urine test done in the office was negative The patient was placed into the dorsal lithotomy position; a speculum was inserted in the vagina. Using aseptic technique for the procedure, the cervix was cleansed with Betadine. The anterior lip of the cervix was grasped with a single tooth tenaculum. The uterus was sounded to 7 cm with a 4 mm Pipelle was used. Tissues samples were obtained and placed in formalin, in a patient labeled container and sent to the pathology department. At the end of the procedure, there was minimal bleeding noted The patient tolerated the procedure well and was discharged in good condition with the following instructions: Nothing in the vagina until the bleeding stops. No sex until the bleeding stops, to call if any of the following occurs: fever (>100.4), flu-like symptoms, abdominal pain, heavy bleeding, four smelling vaginal discharge. The patient was instructed to schedule a Follow up appointment in 2 weeks to discuss pathology results of the biopsy and treatment options. This note was generated with a voice recognition program. Some errors may have been overlooked during the review of this note. Sometimes these errors may affect the content or meaning of a given sentence. [id number] Biopsy Results AMB Test Urine AMB Test Urine Negative Last Edit by Roxane Fish CMA on 16:15 Results Reviewed Results Reviewed: Laboratory Last Values [facility]st Clinic Negative 08/11/24 16:14 Assessment & Plan Assessment & Plan (1) Abnormal uterine bleeding (AUB): Comment: Endometrial polyp with squamous morules D&C/polypectomy pathology no endometrial hyperplasia or malignancy Mirena IUD in-situ Code(s): N93.9 - Abnormal uterine and vaginal bleeding, unspecified Category: Medical Plan: EMB done, see procedure Orders: Orders AMB HCG Urine Test Today Z32.02 - Encounter for test, result negative AMB Endometrial Biopsy Today N93.9 - Abnormal uterine and vaginal bleeding, unspecified Coding Level of Care Code Procedure Only Diagnoses Abnormal uterine bleeding (AUB) N93.9 CPT Codes Endometrial Biopsy - CPT: 38172-[id number] Biopsy ([id number])
[2024-08-11 16:14] VITALS: BMI 40.3
== END 2024-08-11 16:22 | disposition home or self-care (01) ==
LOC: HO.HWS 15:52
PROVIDERS: Visit Provider Obstetrics & Gynecology
DX: N93.9 Abnormal uterine and vaginal bleeding, unspecified (principal); Z32.02 Encounter for pregnancy test, result negative
CPT/HCPCS: 58100

== ENCOUNTER 2024-09-01 14:52 | Outpatient (AMB) | payer OTHER, SELFPAY ==
--- NOTE | 2024-09-01 14:53 | A.OFFVIS_ITS ---
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 The patient has no complaints, no vaginal bleeding, no feverishness chills or abdominal pain. The endometrial biopsy pathology report showed the following: Endometrium, biopsy: Fragments of inactive endometrium with pseudo-decidualized stroma and blood consistent with progestin effect; negative for atypia, hyperplasia or malignancy PFS Medical History Obesity Iron deficiency anemia Surgical History H/O rhinoplasty History of delivery Family History Mother Hypertension History of hysterectomy Father Diabetes Maternal Grandmother Bone marrow disease Maternal Aunt Thyroid cancer Social History Household Members: Spouse, Family and Children Housing: Condominium Are you a primary healthcare administration intern to a significant other at home: No Do you presently have visiting nurse or other home services: No Alcohol intake: current Alcohol intake frequency: does not drink Patient Tobacco Use Status: Never used Tobacco e-Cigarette/Vaping Use: Never Used Second Hand Smoke Exposure: No service: No Current occupational status: employed Gender identity: Female Cognitive needs: No Hearing needs: No Vision needs: No Female Reproductive History Menstrual Age of Menarche: 11 Review of Systems Const All systems reviewed & are unremarkable except as noted in HPI and below Reports as per HPI and Reports no additional complaints GI Reports no additional complaints Reports no additional complaints Telehealth Telehealth Telehealth Platform: Telephone Location of provider rendering services: practice address Location of patient: address on file Patient Identification confirmed using: Name, : Yes Telehealth method: video Patient verbally consented to treatment: Yes Patient verbally consented to billing insurance company: Yes Patient informed of any privacy concerns related to visit: Yes Minutes spent on Phone/Video with Pt.: 3 Assessment & Plan Assessment & Plan (1) Abnormal uterine bleeding (AUB): Comment: 04/09 Endometrial polyp with squamous morules 05/10 D&C/polypectomy pathology no endometrial hyperplasia or malignancy 05/10 Mirena IUD insertion 08/07 EMB inactive endometrium Code(s): N93.9 - Abnormal uterine and vaginal bleeding, unspecified Category: Medical Plan: Discussed with the patient the results of the EMB pathology, it sensitivity, specificity, false-positive false-negative rate in detecting endometrial pathology including hyperplasia and/or malignancy. Recommended to schedule a repeat EMB in 4 months and to call in case of abnormal uterine bleeding. All questions answered, the patient verbalized understanding I spent a total of 20 minutes reviewing the chart, talking to the patient via video and documenting in the medical record. Coding Level of Care Code Tele Est Pt Level 3 (75664) Diagnoses Abnormal uterine bleeding (AUB) N93.9
== END 2024-09-01 15:25 | disposition home or self-care (01) ==
PROVIDERS: Visit Provider Obstetrics & Gynecology
DX: N93.9 Abnormal uterine and vaginal bleeding, unspecified (principal)
CPT/HCPCS: 99213

== ENCOUNTER 2024-09-07 10:30 | Outpatient (AMB) | payer OTHER, SELFPAY ==
--- NOTE | 2024-09-07 10:48 | MHC.PC.OV ---
Vital Signs 09/07/24 10:53 Height 5 ft 4 in Weight 236 lb 4 oz BMI 40.5 BP 120/86 Blood Pressure Location Lt brachial Position Sitting Pulse 80 Pulse Source Pulse Oximeter Temp 97.3 F Temp Source Temporal Artery Scan Pulse Oximetry (%) 98 Oxygen Delivery Method Room Air Intake Visit Reasons: annual exam/ron Dr Simeon Intake Note: Patient is here today for RON from Dr Simeon. Business Performance Advisor Required: No Railroad Emergency Services Manager: Not Required per policy Accompanied by: Self / Same As Patient Allergies latex Allergy (Verified 09/07/24 11:08) Rash acetaminophen (From Tylenol) Adverse Reaction (Mild, Verified 09/07/24 11:08) Nausea Medication List - Last Reconciled 09/07/24 by Yane Vargas PA-C docusate sodium 100 mg PO BID ferrous sulfate 325 mg PO Q2D@0900 Tobacco use date assessed: 09/07/24 Dental Screening Dental Screen Date: 09/07/24 Did you have a dental visit in the last 12 months?: Yes Did you have a dental problem in the last 6 months where you did not have access to dental care?: No Was dental information given to patient?: Patient has dentist HPI annual exam/ron Dr Simeon HPI Details 34-year-old female with past medical history of iron-deficiency anemia, obesity, PCOS, abnormal uterine bleeding last seen 02/2022 coming in for annual exam/transfer of care. Follows with [facility] gynecology for AUB last seen 08/2024 s/p endometrial bx recommended repeat bx in 4 months. The patient is a 34-year-old female presenting for management of iron deficiency anemia and abnormal uterine bleeding. The patient is receiving iron infusions under hematology care. The patient is under gynecological care and had a recent uterine biopsy with no significant findings, but a repeat biopsy is planned in four months. The patient has a history of polycystic ovaries noted during a previous hospitalization. The patient screened positive for depression, with symptoms including low energy and excessive sleep, potentially related to anemia. The patient experiences migraines approximately every 10 days, often triggered by stress, lack of sleep, or poor nutrition. The patient reports frequent constipation and is attempting dietary modifications to increase fiber and water intake. pap smear: UTD following with commercial hvac technician blood work: overdue - orders placed [facility] Medical History Obesity Iron deficiency anemia Surgical History History of hysteroscopy H/O rhinoplasty History of delivery Family History Mother Hypertension History of hysterectomy Father Diabetes Maternal Grandmother Bone marrow disease Maternal Aunt Thyroid cancer Other Mental health disorder Substance use disorder Social History Household Members: Spouse, Family and Children Housing: Condominium Are you a primary careers counsellor to a significant other at home: No Do you presently have visiting nurse or other home services: No Alcohol intake: current Alcohol intake frequency: holidays/special occasions only Patient Tobacco Use Status: Never used Tobacco e-Cigarette/Vaping Use: Never Used Second Hand Smoke Exposure: No service: No Current occupational status: employed Gender identity: Female Cognitive needs: No Hearing needs: No Vision needs: Yes (Glasses) Female Reproductive History Menstrual Age of Menarche: 11 Questionnaire PHQ-9 Over the last 2 weeks, how often have you been bothered by any of the following problems? 1. Little interest or pleasure in doing things: several days 2. Feeling down, depressed, or hopeless: several days 3. Trouble falling or staying asleep, or sleeping too much: several days 4. Feeling tired or having little energy: more than half the days 5. Poor appetite or overeating: more than half the days 6. Feeling bad about yourself - or that you are a failure or have let yourself or your family down: not at all 7. Trouble concentrating on things, such as reading the newspaper or watching television: not at all 8. Moving or speaking so slowly that other people could have noticed. Or the opposite - being so fidgety or restless that you have been moving around a lot more than usual: not at all 9. Thoughts that you would be better off or of hurting yourself in some way: not at all Total score: 7 Depression Screening Interpretation: Positive Depression Screening Follow-up: Existing condition and Declines treatment Depression Screening Done: Yes 70410 - PHQ-9 Billing: Yes Source: Developed by Jane Mahmood.W. Harpreet, Sim Rodriguez and colleagues, with an educational ladonna from [employer]. Thrive Questionnaire Date Thrive assessed: 09/07/24 I am a: Patient What is your living situation today?: I have a steady place to live Within the past 12 months, did the food you bought not last and you didn't have the money to get more?: Never true Within the past 12 months, did you worry whether your food would run out before you got money to buy more?: Never true Do you have trouble paying for medicines?: No Do you have trouble getting transportation to medical appointments?: No Do you have trouble paying your heating and electricity bill?: No Do you have trouble taking care of your child, family member or friend?: No Do you have trouble with day-to-day activities such as bathing, preparing meals, shopping, managing finances, etc.?: No Are you currently unemployed and looking for a job?: No Are you interested in more education?: Yes Please select the resources that you would like help with: Job search/training and Education Currently or been in a relationship where the following occur: No concerns reported THRIVE Score: 0 AUDIT C Alcohol Use Questionnaire (AUDIT-C) 1. How often do you have a drink containing alcohol?: Monthly or less 2. How many drinks containing alcohol do you have on a typical day when you are drinking?: 1 or 2 3. How often do you have six or more drinks on one occasion?: Never Total Score: 1 MICHELLE-7 AMB Questionnaire MICHELLE-7 Date MICHELLE - 7 assessed: 09/07/24 Feeling nervous, anxious, or on edge: 2 = More than half the days Not being able to stop or control worryin = Several days Worrying too much about different things: 1 = Several days Trouble relaxin = Several days Being so restless that it is hard to sit still: 1 = Several days Becoming easily annoyed or irritable: 1 = Several days Feeling afraid as if something awful might happen: 0 = Not at all Total MICHELLE-7 score (0-4 normal; 5-9 mild; 10-14 moderate; 15-21 severe): 7 Source: Developed by Jane Mahmood Kurt Kroenke and colleagues, with an educational ladonna from [employer]. MICHELLE-7 Assessment Billing MICHELLE-7 Assessment Tool: MICHELLE-7 Assessment 78503 Review of Systems Const Denies body aches, Denies chills, Denies fever(s), Reports headache(s) and Denies poor appetite Eyes Reports no additional complaints ENT Denies dysphagia, Denies dizziness, Reports headache(s) and Denies odynophagia Card Denies chest pain, Denies syncope, Denies edema, Denies irregular heart rhythm, Denies lightheadedness and Denies dyspnea Resp Denies cough and Denies dyspnea GI Denies abdominal pain, Reports constipation, Denies dysphagia, Denies diarrhea, Reports nausea (w/ migraines), Denies odynophagia and Denies vomiting Reports no additional complaints Musc Reports no additional complaints and Denies abnormal gait Skin/Breast Reports system reviewed and no additional complaints, except as documented Neuro Denies abnormal gait, Denies dizziness, Denies syncope and Reports headache(s) Psych Reports no additional complaints Physical exam (Primary Care) Vital Signs: Last Vital Signs Temp 97.3 F 09/07/24 10:53 Pulse 80 09/07/24 10:53 BP 120/86 09/07/24 10:53 Pulse Ox 98 09/07/24 10:53 Oxygen Delivery Method Room Air 09/07/24 10:53 BMI result Body Mass Index 40.5 Tobacco/Smoking Status: Tobacco use Status Tobacco use date assessed 09/07/24 09/07/24 10:59 Patient Tobacco Use Status Never used Tobacco 09/07/24 10:58 e-Cigarette/Vaping Use Never Used 09/07/24 10:58 PHQ-9: PHQ-9 Score PHQ-9: Total score 7 09/07/24 11:26 Depression Screening Interpretation: Positive Depression Screening Follow-up: Existing condition and Declines treatment Thrive Assessment: Date of Thrive Assessment Date Thrive assessed 09/07/24 09/07/24 10:49 Currently or been in a relationship where the following occur: No concerns reported Const General: cooperative, healthy appearing, comfortable and no acute distress Orientation/consciousness: patient oriented x3 HENMT Head: Yes normocephalic Ears: hearing grossly normal bilaterally General nose exam: Normal external nose present Face and sinus: Yes normal facial exam and Yes sinuses nontender Mouth: Normal oral and palatal mucosa present and tongue normal Throat: Yes posterior oropharynx normal Eyes General: appearance normal, both eyes and all related structures Conjunctivae: conjunctivae normal Pupils: Equal, round and reactive pupils present EOM: EOMs intact bilaterally and No Nystagmus present Neck Neck: Yes full ROM and Yes no lymphadenopathy Chest Chest palpation & inspection: normal inspection of the chest Resp Effort & Inspection: normal respiratory effort Auscultation: clear to auscultation bilaterally, no crackles, no rales, no rhonchi and no wheezes Cardio Rate: regular rate Rhythm: regular rhythm Peripheral pulses: radial pulses present and dorsalis pedis present GI Inspection: Yes normal to inspection and No Abdominal wall edema Palpation (GI): Soft to palpation, not firm and nontender Auscultation: normal bowel sounds Rectal Exam - Female: deferred General: Yes no CVA tenderness Back/Spine/Pelvis Back: no CVA tenderness Skin General skin exam: no rashes or lesions noted Neuro General: patient oriented x3 Cranial nerves: Yes Equal, round and reactive pupils present, Yes Midline tongue present, Yes Ability to bilaterally elevate shoulders present and No Nystagmus present Gait exam (Neuro): Normal gait present Extrem General: Yes normal to inspection, Yes full ROM and No edema Psych Speech and movement: Normal speech and movement present Affect: normal affect Attitude: cooperative Insight: Good insight present (Psych) Judgement: Good judgement present (Psych) Coding Level of Care Code Est Pt Prev Care 18-39y(34234) Diagnoses Annual physical exam Z00.00 Depression F32.A Anxiety F41.9 PCOS (polycystic ovarian syndrome) E28.2 Obesity E66.9 Abnormal uterine bleeding (AUB) N93.9 Iron deficiency anemia, unspecified iron deficiency anemia type D50.9 Iron deficiency anemia type: unspecified iron deficiency Migraine G43.909 Migraine type: migraine (< 15 days per month) without aura Hypersomnolence G47.10 Screening for hypercholesterolemia Z13.220 Additional Codes MICHELLE-7 Assessment Billing - MICHELLE-7 Assessment Tool: MICHELLE-7 Assessment 18559 ([id number]) PHQ-9 - 36143 - PHQ-9 Billing: Yes ([id number]) Assessment & Plan Assessment & Plan (1) Annual physical exam: Code(s): Z00.00 - Encounter for general adult medical examination without abnormal findings Category: Medical Plan: Patient is up to date on all recommended routine screenings and vaccinations for her age. Healthy diet and regular exercise is encouraged. (2) Depression: Code(s): F32.A - Depression, unspecified Category: Medical Plan: Declining counseling or medical management at this time. (3) Anxiety: Code(s): F41.9 - Anxiety disorder, unspecified Category: Medical Plan: Declining counseling or medical management at this time. (4) PCOS (polycystic ovarian syndrome): Comment: Long standing history together with irregular heavy menses, see note, workup initiated and management discussed Code(s): E28.2 - Polycystic ovarian syndrome Category: Medical Plan: Continue to follow with gynecology at this time. (5) Obesity: Code(s): E66.9 - Obesity, unspecified Category: Medical Plan: Healthy diet and regular exercise is encouraged. (6) Abnormal uterine bleeding (AUB): Comment: 04/09 Endometrial polyp with squamous morules 05/10 D&C/polypectomy pathology no endometrial hyperplasia or malignancy 05/10 Mirena IUD insertion 08/07 EMB inactive endometrium Code(s): N93.9 - Abnormal uterine and vaginal bleeding, unspecified Category: Medical Plan: Continue to follow with gynecology has repeat endometrial biopsy in December. (7) Iron deficiency anemia: Comment: Has needed iron transfusions in past, CBC being checked today, and Hematology referral being placed, anticipating that she is anemic. Code(s): D50.9 - Iron deficiency anemia, unspecified Category: Medical Qualifiers: Iron deficiency anemia type: unspecified iron deficiency Qualified Code(s): D50.9 - Iron deficiency anemia, unspecified Plan: Continue to follow with Hematology iron infusions. Last CBC was improving. (8) Migraine: Code(s): G43.909 - Migraine, unspecified, not intractable, without status migrainosus Category: Medical Qualifiers: Migraine type: migraine (< 15 days per month) without aura Plan: Patient is currently using ergotamine-caffeine with good benefit. Prescription was sent to pharmacy. Declines referral to Neurology or maintenance medication at this time. (9) Hypersomnolence: Code(s): G47.10 - Hypersomnia, unspecified Category: Medical Plan: Plan to order for sleep study for further evaluation. Patient also reports difficulty sleeping at night hydroxyzine will be sent to the pharmacy 10 mg. Plan to follow up in 3 months to re-evaluate. (10) Screening for hypercholesterolemia: Code(s): Z13.220 - Encounter for screening for lipoid disorders Category: Medical Plan: Blood work ordered. Plan The patient will continue to follow up with hematology for iron infusions to manage iron deficiency anemia. A repeat uterine biopsy is planned in four months to further evaluate abnormal uterine bleeding, with continued follow-up with gynecology. A sleep study has been ordered to assess for potential sleep apnea due to excessive daytime sleepiness and fatigue. Hydroxyzine has been prescribed to assist with sleep as needed, with instructions to trial on a day without obligations to monitor for any residual morning drowsiness. For migraine management, ergotamine has been prescribed, and the patient is advised to take it at the onset of migraine symptoms. The patient is encouraged to maintain adequate hydration and dietary modifications to manage constipation. Blood work has been ordered to include thyroid function, vitamins, kidney and liver function, electrolytes, and cholesterol levels to provide a comprehensive health assessment. Follow-up is recommended in three months to review the results of the blood work and sleep study. This note was constructed using voice recognition software. While every effort has been made to ensure accuracy and electrical maintenance engineer, still areas may have been included sometimes these areas may affect the content or meeting of the given symptoms. Total time spent caring for the patient today was 30 minutes. This includes time spent before the visit reviewing the chart, time spent during the visit, and time spent after the visit and documentation. Patient was informed and verbally consented to the use of an ambient scribe for clinic note documentation during this visit. Orders: Orders Free T4 (Free Thyroxine) Today G47.10 - Hypersomnia, unspecified, Z00.00 - Encounter for general adult medical examination without abnormal findings Vitamin B12 and Folate Today G47.10 - Hypersomnia, unspecified, Z13.21 - Encounter for screening for nutritional disorder Vitamin D 25-OH Total Today G47.10 - Hypersomnia, unspecified, Z00.00 - Encounter for general adult medical examination without abnormal findings Lipid Panel Today Z13.220 - Encounter for screening for lipoid disorders Cortisol Random Today E66.9 - Obesity, unspecified RT home sleep study Today G47.10 - Hypersomnia, unspecified Comprehensive Met. Panel Today G47.10 - Hypersomnia, unspecified, Z00.00 - Encounter for general adult medical examination without abnormal findings TSH reflex Free T4 Today G47.10 - Hypersomnia, unspecified, Z00.00 - Encounter for general adult medical examination without abnormal findings Medications: New ergotamine-caffeine 1-100 mg take 2 tablets at onset of headache; if no relief, may repeat 1 tablet after at least 2 hrs; max = 3 tabs/24 hrs PO 30 tabs 0RF hydroxyzine HCl 10 mg PO BEDTIME 30 tabs 0RF
[2024-09-07 10:53] VITALS: BP 120/86; PULSE 80; TEMP 36.3; O2SAT 98; BMI 40.5
== END 2024-09-07 11:34 | disposition home or self-care (01) ==
DX: Z00.00 Encounter for general adult medical examination without abnormal findings (principal); F32.A Depression, unspecified; E66.9 Obesity, unspecified; Z68.41 Body mass index [BMI] 40.0-44.9, adult; F41.9 Anxiety disorder, unspecified; E28.2 Polycystic ovarian syndrome; N93.9 Abnormal uterine and vaginal bleeding, unspecified; D50.9 Iron deficiency anemia, unspecified; G43.909 Migraine, unspecified, not intractable, without status migrainosus; G47.10 Hypersomnia, unspecified; Z13.220 Encounter for screening for lipoid disorders

== ENCOUNTER → 2024-09-07 10:30 | Outpatient (BNVA) | payer OTHER, SELFPAY | DX: Z00.00 Encounter for general adult medical examination without abnormal findings (principal); D50.9 Iron deficiency anemia, unspecified; E66.9 Obesity, unspecified; N93.9 Abnormal uterine and vaginal bleeding, unspecified; E28.2 Polycystic ovarian syndrome; F32.A Depression, unspecified; F41.9 Anxiety disorder, unspecified; G43.909 Migraine, unspecified, not intractable, without status migrainosus; G47.10 Hypersomnia, unspecified; Z68.41 Body mass index [BMI] 40.0-44.9, adult | CPT/HCPCS: 96127 ==

== ENCOUNTER 2024-09-10 08:54 | Outpatient (REF) | payer OTHER, SELFPAY ==
[2024-09-10 10:02] LABS: Cortisol Random 16.3 ug/dL
[2024-09-10 10:06] LABS: Albumin Level 4.2 g/dL (3.5-5.0); Alkaline Phosphatase 60 U/L (39-117); Anion Gap 12 (12-20); Aspartate Amino Transferase 20 U/L (5-31); Bilirubin Total 0.8 mg/dL (0.0-1.0); Blood Urea Nitrogen 16 mg/dL (9-16); Calcium 9.3 mg/dL (8.4-10.2); Carbon Dioxide 28 mmol/L (22-29); Chloride 105 mmol/L (96-108); Cholesterol 181 mg/dL (<200); Estimated Glomerular Filt Rate > 60; Glucose Random 97 mg/dL (60-115); HDL Cholesterol 36 mg/dL (>40); LDL Cholesterol Calculated 126 mg/dL (<100); Potassium 4.3 mmol/L (3.3-5.1); Sodium 141 mmol/L (135-145); Total Protein 7.3 g/dL (6.5-8.0); Triglycerides 97 mg/dL (<150)
[2024-09-10 10:18] LABS: Folate 8.2 ng/mL (> or = 4.0); Vitamin B12 598 pg/mL (200-900)
[2024-09-10 10:21] LABS: Alanine Aminotransferase 17 U/L (0-31); Free T4 (Free Thyroxine) 0.92 ng/dL (0.71-1.85); TSH reflex Free T4 1.79 uIU/mL (0.32-4.0); Vitamin D 25-OH Total 40.5 ng/mL (>30)
== END 2024-09-10 08:55 | disposition home or self-care (01) ==
LOC: HO.LAB 08:54
DX: Z00.00 Encounter for general adult medical examination without abnormal findings (principal); Z13.21 Encounter for screening for nutritional disorder; Z13.220 Encounter for screening for lipoid disorders; G47.10 Hypersomnia, unspecified; E66.9 Obesity, unspecified
CPT/HCPCS: 36415; 80053; 80061; 82306; 82533; 82607; 82746; 84439; 84443

== ENCOUNTER 2024-11-04 08:14 | Outpatient (AMB) | payer OTHER, SELFPAY ==
--- NOTE | 2024-11-04 10:07 | MHC.OFFVISWM ---
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 Allergies latex Allergy (Verified 11/04/24 10:07) Rash acetaminophen (From Tylenol) Adverse Reaction (Mild, Verified 11/04/24 10:07) Nausea Medication List - Last Reconciled 11/04/24 by Jarett Swift MD docusate sodium 100 mg PO BID ergotamine-caffeine 1-100 mg take 2 tablets at onset of headache; if no relief, may repeat 1 tablet after at least 2 hrs; max = 3 tabs/24 hrs PO hydroxyzine HCl 10 mg PO BEDTIME HPI 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: Details: Start time: 10.00am, End time: 10.37am ?I spent 32 minutes speaking with the patient on the phone plus an additional 5 minutes reviewing and updating records for a total of 37 minutes HPI Comments Details: Previous weight loss efforts: self diet and exercise Wakes up: 7am, Sleeps: 12am Breakfast: skips Lunch: 1pm (Hot bar from supermarket, or fast food) Dinner: 7-8pm (sandwich) Snacks: 10am (Croissant) Exercise: has home treadmill that tracks calories and incline Beverages: Coffee (2 cups/d with creamer), Tea: (1 cup/d plain), Soda: occ Coke Zero, Juice: none, ETOH: none PFSH Medical History (Updated 11/04/24 @ 10:25 by Jarett Swift MD) Morbid obesity Obesity Iron deficiency anemia Surgical History History of hysteroscopy H/O rhinoplasty History of delivery Family History Mother Hypertension History of hysterectomy Father Diabetes Maternal Grandmother Bone marrow disease Maternal Aunt Thyroid cancer Other Mental health disorder Substance use disorder Social History Household Members: Spouse, Family and Children Housing: Condominium Are you a primary day care provider to a significant other at home: No Do you presently have visiting nurse or other home services: No Alcohol intake: current Alcohol intake frequency: holidays/special occasions only Patient Tobacco Use Status: Never used Tobacco e-Cigarette/Vaping Use: Never Used Second Hand Smoke Exposure: No service: No Current occupational status: employed Gender identity: Female Cognitive needs: No Hearing needs: No Vision needs: Yes (Glasses) Female Reproductive History Menstrual Age of Menarche: 11 Telehealth Telehealth Telehealth Platform: Telephone Location of provider rendering services: practice address Location of patient: address on file Patient Identification confirmed using: Name, : Yes Telehealth method: voice only Patient verbally consented to treatment: Yes Patient verbally consented to billing insurance company: Yes Patient informed of any privacy concerns related to visit: Yes Minutes spent on Phone/Video with Pt.: 37 Assessment & Plan Assessment & Plan (1) Morbid obesity: Code(s): E66.01 - Morbid (severe) obesity due to excess calories Category: Medical Plan: 1. As we discussed, based on your present BMI you are approximately 100lbs overweight. In my opinion, for any weight loss strategy to be successful should have a high probability to help you lose at least 80lbs out of 100lbs of the extra weight you carry. We discussed in detail the available therapeutic options: 1) our lifestyle intervention program that has an average weight loss of 10% in 3 months.?Some patients continue it for longer and have lost over 50lbs but this is not common. Our lifestyle program can be provided by me or by using our software peggy, the [employer] peggy. I will provide you with a link to use the peggy if you choose to do so. 2) Weight loss medications: these can be used in conjunction with our lifestyle program or you may choose to use them without following a lifestyle program from my program but your own. As we discussed, your insurance requires you to do the lifestyle program for 3 months before they approve the medications. The medication I use more often is called Zepbound and is one shot per week. My office will do the authorizations and we will train you how to use it properly. We also discussed that you can self pay for the first 3 months and the cost is $249 for the first month and $499 for any other month thereafter. These payments go to the drug company directly and not to us. 3) We also discussed about the lap sleeve gastrectomy. In my opinion this is the best option to solve your problem based on your situation and should be used in conjunction with the two previous options. A good strategy to make this decision to proceed with surgery, is to set some goals with the lifestyle intervention and medication options: If you don't lose at least 10lbs the first 6 weeks after starting the program or at least 10% in 3 months. I emphasized the importance of close follow-up, adherence to instructions and good communication. The surgery does not replace the need to change your lifestlyle which is the cause of the obesity problem. The surgery provides the motivation to try again to change your lifestyle, it reduces the appetite and make the transition to a better lifestyle easier and doubles the amount of weight you would lose compared to doing the lifestyle change without the surgery. You will need to be on a liquid diet with protein shakes for 2 weeks before surgery to maximize weight loss and boost your nutritional status to recover better from surgery and also for the first two weeks after surgery to let the stomach heal before we introduce other foods. After the first 2 weeks we will introduce protein bars and soft foods like scrambled eggs, cottage cheese and yogurt and after the 6th week will introduce meat, fish and cooked vegetables in small amounts. Over time you should be able to eat everything in small amounts. Side effects like nausea, vomiting, heartburn or abdominal pain are not common in the practice unless you are not following in the practice. This operation requires lifetime commitment to following in our practice and communication with me. You will much less weight and experience side effects if you don?t communicate or not following in the practice. Complications are rare and in our practice is about 1/10 of the national average.
[2024-11-04 10:15] VITALS: BMI 40.4
== END 2024-11-04 10:38 | disposition home or self-care (01) ==
LOC: HO.HBS 08:14
PROVIDERS: Visit Provider Surgery
DX: E66.01 Morbid (severe) obesity due to excess calories (principal)
CPT/HCPCS: 99203

== ENCOUNTER 2024-12-19 11:52 | Outpatient (AMB) | payer OTHER, SELFPAY ==
--- NOTE | 2024-12-19 11:59 | MHC.OFFVIS ---
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 Information Interpreted: non-clinical & clinical Long Term Acute Care Registered Nurse: Long Term Acute Care Registered Nurse Present (Roxane Fish LEAKayode) Accompanied by: Self / Same As Patient Allergies latex Allergy (Verified 12/19/24 12:03) Rash acetaminophen (From Tylenol) Adverse Reaction (Mild, Verified 12/19/24 12:03) Nausea HPI Comments Details: Presenting for EMB [facility] Medical History (Updated 11/04/24 @ 10:25 by Jarett Swift MD) Morbid obesity Obesity Iron deficiency anemia Surgical History History of hysteroscopy H/O rhinoplasty History of delivery Family History Mother Hypertension History of hysterectomy Father Diabetes Maternal Grandmother Bone marrow disease Maternal Aunt Thyroid cancer Other Mental health disorder Substance use disorder Social History Household Members: Spouse, Family and Children Housing: Condominium Are you a primary senior care assistant to a significant other at home: No Do you presently have visiting nurse or other home services: No Alcohol intake: current Alcohol intake frequency: holidays/special occasions only Patient Tobacco Use Status: Never used Tobacco e-Cigarette/Vaping Use: Never Used Second Hand Smoke Exposure: No service: No Current occupational status: employed Gender identity: Female Cognitive needs: No Hearing needs: No Vision needs: Yes (Glasses) Female Reproductive History Menstrual Age of Menarche: 11 Review of Systems Const All systems reviewed & are unremarkable except as noted in HPI and below Reports as per HPI and Reports no additional complaints GI Reports no additional complaints Reports no additional complaints Physical Exam Vital Signs: BMI result Body Mass Index 40.3 Office Procedures Endometrial Biopsy Details: The patient was counseled regarding the indication and benefits of endometrial sampling to rule out endometrial pathology including not limited to endometrial hyperplasia or endometrial cancer and others; The alternatives (Either do nothing vs. hysteroscopy D&C) & the risks were discussed with the patient including but not limited: pain, uterine perforation, bleeding, infection, possible injury to bladder, bowel, ureter, possible need for blood transfusion with all its possible risks. The patient verbalized understanding all questions answered and signed consent. Urine test done in the office was negative The patient was placed into the dorsal lithotomy position; a speculum was inserted in the vagina. Using aseptic technique for the procedure, the cervix was cleansed with Betadine. The anterior lip of the cervix was grasped with a single tooth tenaculum. The uterus was sounded to 7 cm with a 4 mm Pipelle was used. Tissues samples were obtained and placed in formalin, in a patient labeled container and sent to the pathology department. At the end of the procedure, there was minimal bleeding noted The patient tolerated the procedure well and was discharged in good condition with the following instructions: Nothing in the vagina until the bleeding stops. No sex until the bleeding stops, to call if any of the following occurs: fever (>100.4), flu-like symptoms, abdominal pain, heavy bleeding, four smelling vaginal discharge. The patient was instructed to schedule a Follow up appointment in 2 weeks to discuss pathology results of the biopsy and treatment options. This note was generated with a voice recognition program. Some errors may have been overlooked during the review of this note. Sometimes these errors may affect the content or meaning of a given sentence. [id number] Biopsy Assessment & Plan Assessment & Plan (1) Abnormal uterine bleeding (AUB): Comment: 04/09 Endometrial polyp with squamous morules 05/10 D&C/polypectomy pathology no endometrial hyperplasia or malignancy 05/10 Mirena IUD insertion 08/07 EMB inactive endometrium Code(s): N93.9 - Abnormal uterine and vaginal bleeding, unspecified Category: Medical Plan: EMB done, see procedure note Orders: Orders AMB Endometrial Biopsy Today N93.9 - Abnormal uterine and vaginal bleeding, unspecified Coding Level of Care Code Procedure Only Diagnoses Abnormal uterine bleeding (AUB) N93.9 CPT Codes Endometrial Biopsy - CPT: 35070-Uskkipsryio Biopsy ([id number])
[2024-12-19 12:02] VITALS: BMI 40.3
== END 2024-12-19 12:33 | disposition home or self-care (01) ==
LOC: HO.HWS 11:52
PROVIDERS: Visit Provider Obstetrics & Gynecology
DX: N93.9 Abnormal uterine and vaginal bleeding, unspecified (principal); Z32.02 Encounter for pregnancy test, result negative
CPT/HCPCS: 58100

== ENCOUNTER 2024-12-19 11:52 | Outpatient (REF) | payer OTHER, SELFPAY | END 2024-12-19 11:53 | disposition home or self-care (01) | LOC: HO.LNP 11:52 | PROVIDERS: Visit Provider Obstetrics & Gynecology | DX: N93.9 Abnormal uterine and vaginal bleeding, unspecified (principal); Z32.02 Encounter for pregnancy test, result negative | CPT/HCPCS: 58100; 81025; 88305 ==

== ENCOUNTER → 2024-12-21 15:58 | Outpatient (REF) | payer OTHER, SELFPAY | LOC: HO.SL 15:58 | DX: G47.10 Hypersomnia, unspecified (principal) | CPT/HCPCS: 95806 ==

== ENCOUNTER → 2024-12-21 16:05 | Outpatient (BNV) | payer OTHER, SELFPAY | PROVIDERS: Visit Provider Internal Medicine | DX: G47.33 Obstructive sleep apnea (adult) (pediatric) (principal) | CPT/HCPCS: 95806 ==

== ENCOUNTER 2025-01-18 15:27 | Outpatient (AMB) | payer OTHER, SELFPAY ==
--- NOTE | 2025-01-18 15:42 | A.OFFVIS_ITS ---
Vital Signs 01/18/25 15:44 Height 5 ft 4 in Weight 235 lb BMI 40.3 Intake Visit Reasons: EMB Results Collateral Analyst Required: No Information Interpreted: non-clinical & clinical Accompanied by: Self / Same As Patient Allergies latex Allergy (Verified 01/18/25 15:44) Rash acetaminophen (From Tylenol) Adverse Reaction (Mild, Verified 01/18/25 15:44) Nausea HPI Comments Details: The patient is presenting after endometrial biopsy. The patient has no complaints, no vaginal bleeding, no feverishness chills or abdominal pain. The endometrial biopsy pathology report showed the following: Predominantly blood and fragments of inactive endometrium with pseudo- decidualized stroma consistent with progestin effect; negative for atypia, hyperplasia or malignancy PFS Medical History Morbid obesity Obesity Iron deficiency anemia Surgical History History of hysteroscopy H/O rhinoplasty History of delivery Family History Mother Hypertension History of hysterectomy Father Diabetes Maternal Grandmother Bone marrow disease Maternal Aunt Thyroid cancer Other Mental health disorder Substance use disorder Social History Household Members: Spouse, Family and Children Housing: Condominium Are you a primary farm or ranch animal caretaker to a significant other at home: No Do you presently have visiting nurse or other home services: No Alcohol intake: current Alcohol intake frequency: holidays/special occasions only Patient Tobacco Use Status: Never used Tobacco e-Cigarette/Vaping Use: Never Used Second Hand Smoke Exposure: No service: No Current occupational status: employed Gender identity: Female Cognitive needs: No Hearing needs: No Vision needs: Yes (Glasses) Female Reproductive History Menstrual Age of Menarche: 11 Review of Systems Const All systems reviewed & are unremarkable except as noted in HPI and below Reports as per HPI and Reports no additional complaints GI Reports no additional complaints Reports no additional complaints Physical Exam Vital Signs: BMI result Body Mass Index 40.3 Assessment & Plan Assessment & Plan (1) Abnormal uterine bleeding (AUB): Comment: 04/09 Endometrial polyp with squamous morules 05/10 D&C/polypectomy pathology no endometrial hyperplasia or malignancy 05/10 Mirena IUD insertion 08/07 EMB inactive endometrium 12/19 EMB in active Code(s): N93.9 - Abnormal uterine and vaginal bleeding, unspecified Category: Medical Plan: Discussed with the patient the results of the pathology, the sensitivity, specificity and false-positive false-negative rate in detecting endometrial pathology including endometrial hyperplasia and/or malignancy. Recommended EMB in three-month. Instructions given the patient to schedule EMB within three- month. All questions answered, the patient verbalized understanding Coding Level of Care Code Est Pt Level 3 (80107) Diagnoses Abnormal uterine bleeding (AUB) N93.9
[2025-01-18 15:44] VITALS: BMI 40.3
== END 2025-01-18 15:54 | disposition home or self-care (01) ==
LOC: HO.HWS 15:27
PROVIDERS: Visit Provider Obstetrics & Gynecology
DX: N93.9 Abnormal uterine and vaginal bleeding, unspecified (principal)
CPT/HCPCS: 99213

== ENCOUNTER 2025-01-27 15:49 | Outpatient (AMB) | payer OTHER, SELFPAY ==
[2025-01-27 15:51] VITALS: BP 130/100; PULSE 92; TEMP 36.3; O2SAT 98; BMI 40.6
--- NOTE | 2025-01-27 15:51 | MHC.PC.OV ---
Vital Signs 01/27/25 15:51 Height 5 ft 4 in Weight 236 lb 6 oz BMI 40.6 BP 130/100 H Blood Pressure Location Lt brachial Position Sitting Pulse 92 Pulse Source Pulse Oximeter Temp 97.3 F Temp Source Temporal Artery Scan Pulse Oximetry (%) 98 Oxygen Delivery Method Room Air Intake Visit Reasons: f/u sleep study and blood work Intake Note: Patient is here today for RON from Dr Simeon. 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 Accompanied by: Self / Same As Patient Allergies latex Allergy (Verified 01/27/25 15:52) Rash acetaminophen (From Tylenol) Adverse Reaction (Mild, Verified 01/27/25 15:52) Nausea Medication List - Last Reconciled 01/27/25 by Yane Vargas PA-C docusate sodium 100 mg PO BID ergotamine-caffeine 1-100 mg take 2 tablets at onset of headache; if no relief, may repeat 1 tablet after at least 2 hrs; max = 3 tabs/24 hrs PO hydroxyzine HCl 10 mg PO BEDTIME Tobacco use date assessed: 09/07/24 Dental Screening Dental Screen Date: 09/07/24 Did you have a dental visit in the last 12 months?: Yes Did you have a dental problem in the last 6 months where you did not have access to dental care?: No Was dental information given to patient?: Patient has dentist HPI f/u sleep study and blood work HPI Details 34-year-old female with past medical history of iron-deficiency anemia, obesity, PCOS, abnormal uterine bleeding last seen 08/2024 coming in for follow up. In review of the notes, patient was seen by gasoline tractor operator 01/2025 for AUB recommending repeat EMB in 3 months. She also completed sleep study which revealed mild JENNIFER recommending weight loss and avoidance of supine position. Presenting for follow-up on several health issues. The patient recently experienced a viral illness that started last week with fevers on Thursday and Thursday, accompanied by congestion and a cough. She tested negative for COVID, and her symptoms are reportedly improving. She sustained a fall on her knee while traveling out of the country on [place] 03. She was evaluated at an urgent care where X-rays were performed and reported as normal. Although her ability to walk has improved, she continues to experience knee clicking and pain, particularly with squatting, bending the knee, and descending stairs. A recent sleep study revealed mild sleep apnea, with episodes occurring mostly when she is lying on her back. CPAP was not recommended; instead, weight loss and avoiding the supine position during sleep were advised. She previously visited a weight management clinic but described it as an unpleasant experience and is interested in injectable medications for weight loss. [facility] Medical History Morbid obesity Obesity Iron deficiency anemia Surgical History History of hysteroscopy H/O rhinoplasty History of delivery Family History Mother Hypertension History of hysterectomy Father Diabetes Maternal Grandmother Bone marrow disease Maternal Aunt Thyroid cancer Other Mental health disorder Substance use disorder Social History Household Members: Spouse, Family and Children Housing: [facility] Are you a primary patient care technician instructor to a significant other at home: No Do you presently have visiting nurse or other home services: No Alcohol intake: current Alcohol intake frequency: holidays/special occasions only Patient Tobacco Use Status: Never used Tobacco e-Cigarette/Vaping Use: Never Used Second Hand Smoke Exposure: No service: No Current occupational status: employed Gender identity: Female Cognitive needs: No Hearing needs: No Vision needs: Yes (Glasses) Female Reproductive History Menstrual Age of Menarche: 11 Questionnaire PHQ-9 Over the last 2 weeks, how often have you been bothered by any of the following problems? 1. Little interest or pleasure in doing things: several days 2. Feeling down, depressed, or hopeless: several days 3. Trouble falling or staying asleep, or sleeping too much: several days 4. Feeling tired or having little energy: more than half the days 5. Poor appetite or overeating: more than half the days 6. Feeling bad about yourself - or that you are a failure or have let yourself or your family down: not at all 7. Trouble concentrating on things, such as reading the newspaper or watching television: not at all 8. Moving or speaking so slowly that other people could have noticed. Or the opposite - being so fidgety or restless that you have been moving around a lot more than usual: not at all 9. Thoughts that you would be better off or of hurting yourself in some way: not at all Total score: 7 Depression Screening Interpretation: Positive Depression Screening Follow-up: Existing condition and Declines treatment Depression Screening Done: Yes 53807 - PHQ-9 Billing: Yes Source: Developed by Drs. Favio Ho, Jane Mullins, Sim Rodriguez and colleagues, with an educational ladonna from [email or web address]. Thrive Questionnaire Date Thrive assessed: 09/07/24 I am a: Patient What is your living situation today?: I have a steady place to live Within the past 12 months, did the food you bought not last and you didn't have the money to get more?: Never true Within the past 12 months, did you worry whether your food would run out before you got money to buy more?: Never true Do you have trouble paying for medicines?: No Do you have trouble getting transportation to medical appointments?: No Do you have trouble paying your heating and electricity bill?: No Do you have trouble taking care of your child, family member or friend?: No Do you have trouble with day-to-day activities such as bathing, preparing meals, shopping, managing finances, etc.?: No Are you currently unemployed and looking for a job?: No Are you interested in more education?: Yes Please select the resources that you would like help with: Job search/training and Education Currently or been in a relationship where the following occur: No concerns reported THRIVE Score: 0 AUDIT C Alcohol Use Questionnaire (AUDIT-C) 1. How often do you have a drink containing alcohol?: Monthly or less 2. How many drinks containing alcohol do you have on a typical day when you are drinking?: 1 or 2 3. How often do you have six or more drinks on one occasion?: Never Total Score: 1 MICHELLE-7 AMB Questionnaire MICHELLE-7 Date MICHELLE - 7 assessed: 09/07/24 Feeling nervous, anxious, or on edge: 2 = More than half the days Not being able to stop or control worryin = Several days Worrying too much about different things: 1 = Several days Trouble relaxin = Several days Being so restless that it is hard to sit still: 1 = Several days Becoming easily annoyed or irritable: 1 = Several days Feeling afraid as if something awful might happen: 0 = Not at all Total MICHELLE-7 score (0-4 normal; 5-9 mild; 10-14 moderate; 15-21 severe): 7 Source: Developed by Drs. Favio Ho, Jane Mullins, Sim Rodriguez and colleagues, with an educational ladonna from [email or web address]. Review of Systems Const Denies body aches, Denies chills, Denies fever(s) and Denies poor appetite Eyes Reports no additional complaints ENT Denies dizziness Card Denies chest pain, Denies lightheadedness and Denies dyspnea Resp Denies dyspnea GI Denies abdominal pain, Denies nausea and Denies vomiting Reports no additional complaints Musc Reports as per HPI and Denies abnormal gait Skin/Breast Reports system reviewed and no additional complaints, except as documented Neuro Denies abnormal gait and Denies dizziness Psych Reports no additional complaints Physical exam (Primary Care) Vital Signs: Last Vital Signs Temp 97.3 F 01/27/25 15:51 Pulse 92 01/27/25 15:51 BP 130/100 H 01/27/25 15:51 Pulse Ox 98 01/27/25 15:51 Oxygen Delivery Method Room Air 01/27/25 15:51 BMI result Body Mass Index 40.6 Tobacco/Smoking Status: Tobacco use Status Tobacco use date assessed 09/07/24 01/27/25 15:59 Patient Tobacco Use Status Never used Tobacco 01/27/25 15:59 e-Cigarette/Vaping Use Never Used 01/27/25 15:59 PHQ-9: PHQ-9 Score PHQ-9: Total score 7 01/27/25 16:33 Depression Screening Interpretation: Positive Depression Screening Follow-up: Existing condition and Declines treatment Thrive Assessment: Date of Thrive Assessment Date Thrive assessed 09/07/24 01/27/25 15:59 Currently or been in a relationship where the following occur: No concerns reported Const General: cooperative, healthy appearing, comfortable and no acute distress Orientation/consciousness: patient oriented x3 HENMT Head: Yes normocephalic Ears: hearing grossly normal bilaterally General nose exam: Normal external nose present Eyes General: appearance normal, both eyes and all related structures Conjunctivae: conjunctivae normal Neck Neck: Yes full ROM and Yes no lymphadenopathy Resp Effort & Inspection: normal respiratory effort Auscultation: clear to auscultation bilaterally, no crackles, no rales, no rhonchi and no wheezes Cardio Rate: regular rate Rhythm: regular rhythm Skin General skin exam: no rashes or lesions noted Neuro General: patient oriented x3 Gait exam (Neuro): Normal gait present Extrem Other: Tenderness to palpation over left knee General: Yes normal to inspection, Yes full ROM and No edema Psych Affect: normal affect Attitude: cooperative Insight: Good insight present (Psych) Judgement: Good judgement present (Psych) Coding Level of Care Code Est Pt Level 3 (52248) Diagnoses PCOS (polycystic ovarian syndrome) E28.2 Obesity E66.9 Migraine G43.909 Migraine type: migraine (< 15 days per month) without aura JENNIFER (obstructive sleep apnea) G47.33 Left knee pain M25.562 URI (upper respiratory infection) J06.9 Additional Codes PHQ-9 - 49936 - PHQ-9 Billing: Yes ([id number]) Assessment & Plan Assessment & Plan (1) PCOS (polycystic ovarian syndrome): Comment: Long standing history together with irregular heavy menses, see note, workup initiated and management discussed Code(s): E28.2 - Polycystic ovarian syndrome Category: Medical Plan: Continue to follow with gynecology at this time. (2) Obesity: Code(s): E66.9 - Obesity, unspecified Category: Medical Plan: Healthy diet and regular exercise is encouraged. Given the diagnosis of mild obstructive sleep apnea, weight loss is recommended. Weight loss injections such as Zepbound or Wegovy are being considered, but initiation is pending clarification of the patient's family history of thyroid cancer. Specifically, a history of medullary thyroid cancer is a contraindication. An alternative oral medication, Phentermine, was discussed as an option for short-term use (up to six months), which would require a baseline EKG due to potential effects on heart rhythm. The patient was provided with the names of the medications and the specific type of cancer to inquire about. (3) Migraine: Code(s): G43.909 - Migraine, unspecified, not intractable, without status migrainosus Category: Medical Qualifiers: Migraine type: migraine (< 15 days per month) without aura Plan: Patient is currently using ergotamine-caffeine with good benefit. Prescription was sent to pharmacy. Declines referral to Neurology or maintenance medication at this time. (4) JENNIFER (obstructive sleep apnea): Code(s): G47.33 - Obstructive sleep apnea (adult) (pediatric) Category: Medical Plan: Recommended weight management and avoidance of the supine position (5) Left knee pain: Code(s): M25.562 - Pain in left knee Category: Medical Plan: The patient's persistent knee pain, clicking, and functional limitations despite a normal X-ray are concerning for a soft tissue injury, such as a meniscal tear. A referral for physical therapy will be placed. The patient was advised to use [id number] analgesics like Tylenol or ibuprofen and a compression sleeve for support, while avoiding immobilizing braces. An orthopedic referral or MRI would be the next step if physical therapy is unsuccessful. The patient was also asked to obtain the X-ray report from her urgent care visit. (6) URI (upper respiratory infection): Code(s): J06.9 - Acute upper respiratory infection, unspecified Category: Medical Plan: The patient's symptoms are resolving. Supportive care with rest and hydration was advised. Plan This note was constructed using voice recognition software. While every effort has been made to ensure accuracy and lithoduplicator operator, still areas may have been included sometimes these areas may affect the content or meeting of the given symptoms. Total time spent caring for the patient today was 20 minutes. This includes time spent before the visit reviewing the chart, time spent during the visit, and time spent after the visit and documentation. Patient was informed and verbally consented to the use of an ambient scribe for clinic note documentation during this visit. Orders: Orders Complete Blood Count Auto Diff Today D50.9 - Iron deficiency anemia, unspecified, Z13.0 - Encounter for screening for diseases of the blood and blood-forming organs and certain disorders involving the immune mechanism IRON PROFILE Today D50.9 - Iron deficiency anemia, unspecified PT Evaluation and Treatment Today M25.562 - Pain in left knee
== END 2025-01-27 16:22 | disposition home or self-care (01) ==
LOC: HO.HMCH 15:50
DX: E28.2 Polycystic ovarian syndrome (principal); E66.9 Obesity, unspecified; Z68.41 Body mass index [BMI] 40.0-44.9, adult; G43.909 Migraine, unspecified, not intractable, without status migrainosus; G47.33 Obstructive sleep apnea (adult) (pediatric); M25.562 Pain in left knee; J06.9 Acute upper respiratory infection, unspecified

== ENCOUNTER → 2025-01-27 15:49 | Outpatient (BNVA) | payer OTHER, SELFPAY | DX: G47.33 Obstructive sleep apnea (adult) (pediatric) (principal); E28.2 Polycystic ovarian syndrome; E66.9 Obesity, unspecified; G43.909 Migraine, unspecified, not intractable, without status migrainosus; M25.562 Pain in left knee; J06.9 Acute upper respiratory infection, unspecified; Z91.81 History of falling; Z99.89 Dependence on other enabling machines and devices | CPT/HCPCS: 96127 ==

== ENCOUNTER 2025-02-07 06:52 | Outpatient (REF) | payer OTHER, SELFPAY ==
[2025-02-07 07:01] LABS: MANUAL DIFF FLAG NO
[2025-02-07 07:18] LABS: Hematocrit 40.0 % (37.0-47.0); Hemoglobin 13.5 g/dl (12.0-16.0); Imm Gran Abs Auto 0.02 X10*3/uL (0.00-0.03); Imm Gran Pct Auto 0.3 % (0.0-0.4); Lymphocytes Absolute Auto 2.6 X10*3/uL (1.2-4.9); Mean Corpuscular HGB Conc 33.8 g/dl (31.0-35.0); Mean Corpuscular Hemoglobin 28.7 pg (27.0-33.0); Mean Corpuscular Volume 84.9 fL (80.0-98.0); NRBC Abs Auto 0.000 X10*3/uL (0.0-0.012); NRBC Pct Auto 0.0 /100WBC (0.0-0.2); Platelet Count 242 X10*3/uL (160-400); Red Blood Count 4.71 X10*6/uL (4.20-5.50); White Blood Count 7.2 X10*3/uL (4.8-10.8)
[2025-02-07 07:44] LABS: Cholesterol 186 mg/dL (<200); HDL Cholesterol 41 mg/dL (>40); Iron 46 mcg/dL (30-160); Percent Iron Saturation 21 % (15-50); Total Iron Binding Capacity 222 mcg/dL (228-428); Triglycerides 72 mg/dL (<150); Unsaturated Iron Binding 176 ug/dL
== END 2025-02-07 06:53 | disposition home or self-care (01) ==
LOC: HO.LAB 06:52
DX: Z13.0 Encounter for screening for diseases of the blood and blood-forming organs and certain disorders involving the immune mechanism (principal); E78.00 Pure hypercholesterolemia, unspecified; N93.9 Abnormal uterine and vaginal bleeding, unspecified; D50.9 Iron deficiency anemia, unspecified
CPT/HCPCS: 36415; 80061; 83540; 85025